=== PATIENT | female | born 1990 | race Caucasian/White ===

== ENCOUNTER → 2018-04-22 13:29 | Outpatient (CLI) | payer OTHER, SELFPAY ==
--- NOTE | 2018-04-22 13:30 | CT_ITS ---
CT abdomen pelvis wo con INDICATION: Abdominal pain. Left flank left lower quadrant and right lower quadrant pain 3 weeks ITS.REASON: Stone Protocol ORDERING PHYSICIAN: Holden Covarrubias MD PATIENT AGE: 28 years COMPARISON: CT abdomen pelvis July 2014 PROCEDURE: Oral Contrast: None IV Contrast: None TECHNIQUE: Axial images are obtained without contrast. Sagittal and coronal reformatted images are reviewed as well. All CT scans at the facility use one or more dose reduction, viz: automated exposure control; ma/kV adjustment per patient size (including targeted exams where dose is matched to indication; i.e. head); or iterative reconstruction technique. FINDINGS: Lung bases clear no acute findings. Small calcified granuloma periphery of theLLL Abdomen/pelvis. Lack of oral and IV contrast decreases sensitivity Liver, spleen, unremarkable. Gallbladder is surgically removed. No biliary ductal dilatation. Pancreas moderate to generous size throughout its unchanged since 2013 with no focal findings on noncontrast study.Adrenals unremarkable. Kidneys. No hydronephrosis. No discrete urinary calculi. Slight hyperdense renal pyramids may reflect tendency to form stones or subtle changes as might be seen with mild medullary sponge kidney type changes. Subtle observation but noted with no definitive renal stone calculi evident.. The ureters are normal in course and caliber bilaterally, with no discrete ureteral calculi evident there are a few small scattered retroperitoneal nodes these are similar to 2014. It do not appear to be a significant no pelvic adenopathy. No significant mesenteric adenopathy GI tract. Large amount stool, increased stool throughout the right colon and cecum. Generous stool the transverse colon. Features may reflect mild constipation right colon. A moderate stool at the left colon. No bowel wall thickening or inflammation. Sigmoid colon with upper normal wall thickness most likely reflect the lack of distention.. Appendix normal. Terminal ileum unremarkable. Small bowel with upper normal fluid at proximal small bowel Prominent food filled moderately distends the stomach. Pelvis. No significant adnexal masses. Anteverted uterus. Bowel loops just above the uterus except for the appearance here. IMPRESSION 1. No discrete acute findings abdomen or pelvis 2. No urinary tract obstruction. No discrete urinary tract calculi. Slightly hyperdense renal pyramids may reflect tendency to form stones, but no discrete renal nor ureteral calculi evident presently. 3. No definitive findings to account for left-sided pain 4. .Prominent stool at the right and transverse colon may reflect mild constipation. .Distended food filled stomach noted on current exam 5. Pelvis. Anteverted and anteflexed uterus No adnexal masses. No free fluid at pelvis
== END ==
PROVIDERS: Family Provider Family Medicine; PCP Family Medicine; Visit Provider Nurse Practitioner Obstetrics & Gynecology
DX: R10.9 Unspecified abdominal pain (principal)
CPT/HCPCS: 74176

== ENCOUNTER → 2018-07-22 11:10 | Outpatient (CLI) | payer OTHER, SELFPAY ==
--- NOTE | 2018-07-22 11:12 | XR_ITS ---
EXAM: XR lumbar spine min 4V HISTORY: ITS.REASON: Severe lower back pain ORDERING PHYSICIAN: Holden Covarrubias MD PATIENT AGE: 28 years COMPARISON: FINDINGS: Normal alignment. No fracture or dislocation. No lytic or blastic change. No significant degenerative change. The disc spaces are preserved. Mild thoracic curvature convex left IMPRESSION: 1. No acute finding of the lumbar spine. 2. Mild thoracolumbar curvature convex left
== END ==
PROVIDERS: PCP Family Medicine; Visit Provider Nurse Practitioner Obstetrics & Gynecology
DX: G89.29 Other chronic pain (principal); M54.16 Radiculopathy, lumbar region
CPT/HCPCS: 72110

== ENCOUNTER → 2018-08-07 12:23 | Outpatient (CLI) | payer OTHER, MEDICAID, SELFPAY ==
--- NOTE | 2018-08-07 12:34 | XR_ITS ---
XR chest employee HISTORY: ITS.REASON: +PPD ORDERING PHYSICIAN: Carmelo Thakkar MD PATIENT AGE: 28 years COMPARISON: None FINDINGS: The cardiomediastinal silhouette and pulmonary vascularity are within normal limits. The lungs are clear without infiltrates, suspicious nodules, or pleural effusions. There is increased density along the left aspect of the heart felt to be related to summation artifact from pericardial fat and breast attenuation and overlying vessels. Not readily apparent on the lateral view.. No acute bony abnormalities. IMPRESSION: No acute finding. No active granulomatous process apparent
[2018-08-07 12:54] VITALS: BMI 20.7
== END ==
PROVIDERS: PCP Internal Medicine Adolescent Medicine; Visit Provider Internal Medicine Adolescent Medicine
DX: R76.11 Nonspecific reaction to tuberculin skin test without active tuberculosis (principal)

== ENCOUNTER 2018-09-17 14:30 | Outpatient (RCR) | payer OTHER, MEDICAID, SELFPAY ==
--- NOTE | 2018-09-08 09:11 | [facility].PTOPEV ---
PT Outpatient Evaluation Rehab PT Outpatient Evaluation Start: 09/08/18 08:36 Freq: Status: Active Protocol: Document 09/08/18 08:37 ANTHONY (Rec: 09/08/18 09:10 [email or web address] [id number]) Electronically Signed By Sharif Cano PT 09/08/18 08:37 Outpatient Therapy Subjective History Subjective History Pt reports to PT w/ c/o LBP R. L s/p fall at home. Pt reports she slipped, fell and landed on tailbone. Pt reports pain started a few days later and has steadily increased. Pt reports standing and lying once relieved pain, now they offer no relief. Pt had Xray, no abnormalities. C/O pain in B paraspinal Mm, w/ some c/o pain into RLE post and ant. Chief Complaint Pain Spasms Stiff Symptom Type Ache Throb Sharp Burning Shooting Symptoms Relieved By Nothing Symptoms Aggravated By Sitting Bending/Stooping Physical Activity Prior Functional Limitations None Current Functional Limitations Desk Work/Reading Driving Sleeping Standing Sitting Recreation Activity Bending/Stooping Symptom Description Constant but Variable Level of pain today (0-10) 3 Pain scale - at its best (0-10) 3 Pain scale - at its worst (0-10) 8 Lumbopelvic Eval Posture Lumbar Spine Posture Standing Position Flattened Assistive device Assistive Devices None / NA Palapation tenderness bilateral thoracic spinal tenderness No lumbar spinal tenderness Yes paraspinal tenderness Yes buttock tenderness No tenderness over symphysis pubis No Lumbar/Sacral Palpation Findings Tenderness Spasm Trigger Point Muscle Guarding Accessory Movement L3 bilateral L4 bilateral L5 bilateral S1 bilateral Range of Motion Lumbar Spine Active Flexion Range of 40 M
== END 2018-09-17 14:35 | disposition home or self-care (01) ==
LOC: PT 14:30
PROVIDERS: Visit Provider Nurse Practitioner
DX: M54.5 Low back pain (principal)
CPT/HCPCS: 97010; 97014; 97033; 97035; 97140; 97163; G0283

== ENCOUNTER → 2018-09-22 09:16 | Outpatient (CLI) | payer OTHER, MEDICAID, SELFPAY ==
--- NOTE | 2018-09-22 09:19 | MR_ITS ---
MR lumbar spine wo con, MR 3-d myelogram/MRCP Ordering Physician: Karolina Garcia Patient Age: 28 years: Female HISTORY: ITS.REASON: LUMBAR BACK PAIN, ACUTE BILATERAL LOW BACK PAIN TECHNIQUE: Sagittal STIR, T1, T2, axial T1 and T2. On 1.5T Siemens wide bore MRI. 3-D MR myelogram image set obtained & performed on MRI workstation. Additional sagittal thin section T2 weighted dataset obtained from this latter acquisition as well (---76 CPT) COMPARISON :Lumbar spine series 5 view from 07/22/2018. FINDINGS The lumbar vertebral bodies are intact. Normal alignment. The disc are well-hydrated well-maintained. No significant disc herniation or protrusion no spinal stenosis. L5/S1. Disc intact. & Unremarkable. Minor facet prominence L4/5. Scant minor disc bulge most evident central. . Does not appear to be of significance only very slightly abuts indents anterior anterior thecal sac at midline. Negligible.. Minor facet prominence. L3/4. Disc intact unremarkable. Neural foramen widely patent graft L2/3 disc intact L1/2 disc intact T12/L1 and T11/12 disc intact.) Appropriately at L1. 3-D MR myelogram image set shows no significant findings. Symmetrical appearance the exiting nerve roots throughout the lumbar region. The images through majority kidneys included, unremarkable. No retroperitoneal adenopathy or aneurysm evident. Uppermost sacrum and SI joints unremarkable IMPRESSION: Basically negative MRI of the lumbar spine -Only note a very minor scant central disc bulge developing at L4/5. Only slightly indents anterior thecal sac at midline.. . No disc herniation. No spinal stenosis. No significant appearing foraminal encroachment.
== END ==
PROVIDERS: PCP Nurse Practitioner; Visit Provider Nurse Practitioner
DX: M54.5 Low back pain (principal)
CPT/HCPCS: 72148; 76376

== ENCOUNTER → 2019-06-01 09:48 | Outpatient (CLI) | payer OTHER, MEDICAID, SELFPAY ==
--- NOTE | 2019-06-01 09:52 | XR_ITS ---
PROCEDURE: XR HAND RT MIN 3V CLINICAL INDICATION: right hand/ 4th digit pain COMPARISON: No exams were available for comparison FINDINGS: No fracture or dislocation. No lytic or blastic change. There is normal mineralization. The joint spaces are well-preserved. No significant degenerative/arthritic changes. No erosive changes evident. Other findings:None. IMPRESSION: No acute findings. Dictated by: Alvaro Santizo MD 06/01/2019 11:04 Signed by: <Electronically signed by Alvaro Santizo MD in [place]> 06/01/2019 11:04
== END ==
PROVIDERS: PCP Family Medicine; Visit Provider Orthopaedic Surgery
DX: M79.641 Pain in right hand (principal)
CPT/HCPCS: 73130

== ENCOUNTER 2019-06-02 15:00 | Inpatient (IN) ==
[2019-06-02 13:17] LABS: Basophils % 0.7 % (0.1-2.0); Eosinophils # 0.3 K/mm3 (0.0-0.4); Eosinophils % 4.3 % (0.1-12.0); Hemoglobin 12.8 g/dL (12.2-16.2); Lymphocytes # 1.6 K/mm3 (0.7-4.5); Lymphocytes % 27.9 % (10-50); Mean Corpuscular HGB Conc 31.9 g/dL (31.8-35.4); Mean Corpuscular Volume 98.4 fl (81-99); Mean Platelet Volume 7.5 fl (7.4-10.4); Monocytes # 0.2 K/mm3 (0.1-1.0); Neutrophils # 3.7 K/mm3 (1.8-7.8); Neutrophils % 63.2 % (37.0-80.0); Platelet Count 296 K/mm3 (142-424); Red Blood Count 4.07 M/mm3 (4.20-5.40); Red Cell Distribution Width 12.7 % (11.5-17.5); White Blood Count 5.8 K/mm3 (4.8-10.8)
[2019-06-02 14:03] LABS: Erythrocyte Sedimentation Rate 73 mm/hr (0-20)
--- NOTE | 2019-06-02 18:27 | Progress Note ---
[facility] Anesthesia Checklist - Patient Identification Patient Identification: Arm Band, Verbal (Name & ) - Structural Data Admitted From: Direct Admit Planned Operative Procedure/s: Right 4th finger I&D Consent for Planned Operative Procedure(s) Verified: Yes Verified Documents: Surgical Consent, History and Physical - NPO Status Verified Time NPO: 09:00 - Chart Verification Results Verified: CBC, BMP, UA - Additional verifications Patient : No Anesthesia Reactions: No Hx Blood Transfusions: No Blood Transfusion Reaction: No - Airway Assessment C-Spine Mobility Assessed: Yes TMJ Mobility Assessed: Yes Dentition: Good Dentition - Neurological Assessment Level of Consciousness: Awake, Alert, Appropriate, Follows Commands Hx Seizures: No Numbness or tingling in extremities: No - Anesthesia Plan Anesthesia Risk discussed: Yes Anesthesia Plan: Verified ASA Class: II Anesthesia Type: General Acuity:: emergent, add on [facility] History I have reviewed the patient's past medical history: Yes Medical History: Reports:: Anxiety, Depression, Migraine Denies:: Cancer, Diabetes Mellitus Type 1, Diabetes Mellitus Type 2, Internal Pacemaker, Lung Disease, MRSA, Seizures *Have you ever received a pneumonia vaccine?: No *Have you received a flu vaccine this season?: Yes Other Medical History: Denies: Blood Transfusion Reaction Comment:: obesity Anesthesia experience/problems:: no complications Other Surgeries: Yes: Cholecystectomy. No: Pacemaker Amputation: No Fractures: No - *Social History Smoking Status: Never smoker Alcohol Intake: never Substance Use Type: denies use *Occupational Status:: employed Housing: house Household Members: other *Travel in the last 8 weeks: None (unknown) - Psychiatric History Pschychiatric History:: Reports:: Anxiety, Depression Family Hx:: Hypertension, Cancer
--- NOTE | 2019-06-02 18:29 | Progress Note ---
[facility] Anesthesia Record Part I Intake, IV Amount: 400 Estimated blood loss (mL): 5 Urine output (mL): 0 (NM) Blood Products used (#): none Blood Pressure: 134/83 SaO2: 96 Pulse Rate: 95 Respiratory Rate: 10 Temperature: 97.3 F Patient is:: Drowsy, Stable Stable to PACU at:: 18:20
--- NOTE | 2019-06-02 18:29 | Progress Note ---
[facility] Anesthesia Record Part II Discharge Time: 18:50 Destination: Medical Surgical Department PACU nurse assessment reviewed?: Yes Patient Condition:: Good Anesthesia Complications:: None Swallowing reflex intact?: Yes Cyanosis?: No
--- NOTE | 2019-06-02 18:54 | Operative Note ---
Date of procedure: 06/02/19 Pre-op Diagnosis:: Tenosynovitis flexor tendon sheath fourth finger, right hand Post-op Diagnosis:: Same Procedure performed:: Incision and drainage flexor tendon sheath fourth finger, right hand Surgeon:: Erasmo Patterson MD Molder Machine(s):: Stephanie Pickett PROFESSOR OF MARKETING:: George Gustafson Anesthesia: GETA Estimated blood loss (mL): 5 Clinical Note:: Patient is a 29-year-old [id number] female with complaints of worsening pain and swelling over the right hand and right fourth finger. There is no his tory of any definitive injury. She says she had developed some discomfort in the left fourth finger after mowing her yard couple of days ago. This is gradually gotten worse with worsening pain, swelling and stiffness in her hand. 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 She is localizing the pain to the volar aspect of the fourth finger mainly over the PIP joint and middle phalanx extending proximally into the hand and distally to the tip of the fourth finger. She reports no pain in other fingers. No history of any fevers, chills or rigors. No history of any previous hand problems or surgery. Clinical examination is highly suggestive of the diagnosis of pyogenic flexor tenosynovitis with positive Kanavel's signs- the fourth finger is in a slightly flexed posture, she is tender over the flexor tendon sheath of the fourth finger, there is marked pain with passive extension of the finger and there is diffuse fusiform swelling of the finger. Sensation is intact to light touch throughout; Capillary refill is brisk. Diagnostic imaging: X-rays of the right hand performed at [facility] yesterday reviewed along with radiologist report. The x-rays are not showing any significant swelling, foreign body or other acute abnormalities. No acute injuries are noted. Following initial consultation in the office yesterda y, I have started her on oral Keflex and clindamycin along with regular NSAIDs. However she returned to the clinic today with worsening pain and swelling. Following discussion regarding management options, a decision was made to admit her to hospital, and she was prepared for surgical incision and drainage. Please refer to my office note for full details. Operative findings:: Infected flexor tendon sheath of the fourth finger with inflamed tendon sheath with exudative fluid. Indurated and erythematous soft tissue at the level of the P2. The flexor tendons are intact and no obvious tendon tears or necrosis noted. No obvious bone or joint involvement was noted. There was cellulitis over the fourth finger extending over the proximal and middle phalanges. A fibr ous/granulomatous nodule noted in the soft tissue volar to the flexor tendon sheath at the level of the P2. This was sent for histopathological examination. Operative note:: Following evaluation in the office, patient was [admitted to hospital and] prepared for surgical incision and drainage. I have discussed the diagnosis, natural history and management options in detail including both nonsurgical and surgical. The procedure of incision and drainage/debridement of pyogenic flexor tenosynovitis was discussed with the patient. The complications discussed including but not limited to- infection, bleeding, injury to nerves, blood vessels, tendons, tendon adhesions, delayed tendon rupture, failure to eradicate the infection, incomplete recovery, persistent pain, stiffness, CRPS, DVT/PE, likely need for further surgery and anesthetic complications including stroke, heart attack and even . Patient wished to proceed with the surgical remediation. All the questions were answered and patient verbalized a good understanding. The limb was appropriately marked. Patient understood the risks, agreed to proceed with surgery, signed the consent form and no guarantees or assurances were given or implied. Patient was brought to the operating room and placed supine on the operating table. The [right] upper extremity was placed over a hand table. All the bony prominences were appropriately padded. A general anesthesia was administered by the assembler tractor. A well-padded tourniquet cuff was placed over the upper arm. The [right] upper extremity was prepped and draped in usual sterile fashion. A preprocedure timeout was performed as per protocol. The limb was elevated but not exsanguinated and tourniquet inflated to 250 mmHg. Please see nursing notes for total tourniquet time. The skin incisions were marked for incision and drainage of the flexor tendon sheath of the [fourth] finger. I first made a an oblique (Ian's) skin incision over the volar aspect of the P2 of the fourth finger. A lot of exudative material was noted but no obvious pus was noted. Culture swabs were obtained for aerobic and anaerobic cultures. After obtaining the samples for microbiology, patient received 1.5 g of IV vancomycin and 2 g of IV Ancef. There was a 3 x 3 mm firm granulomatous nodule in the soft tissue anterior to the flexor tendon sheath. This was removed and sent for histopathological examination. I carried the blunt dissection down to the tendon sheath and noted inflamed tendon sheath filled with exudate. No obvious purulent material or necrotic tissue was noted. The wound was thoroughly irrigated with normal saline mixed with bacitracin. I then made a small slit in the tendon sheath and the exudative fluid drained out. Therefore, I have d ecided to irrigate the tendon sheath. I then made a small transverse incision in the palm distal to the distal flexor crease just proximal to the level of the A1 venice. Then blunt dissection was carried down to the A1 venice. The neurovascular bundles on either side were protected throughout. The flexor tendon sheath of the [fourth] finger was noted to be inflamed and filled with exudative fluid. I incised the sheath proximal to the level of the A1 venice and the fluid was drained. Using an [Angiocath], I irrigated the flexor tendon sheath with copious amounts of normal saline with bacitracin. I continued irrigating the flexor tendon sheath until clear fluid was noted. A total of 500 cc of normal saline with bacitracin was used. The tourniquet was released and hemostasis was obtained with bipolar diathermy. I then placed rubber drains in both the proximal and distal incisions. The skin incisions were then closed with interrupted 4-0 Ethilon sutures. Sterile dressings were applied. Patient was then reversed from the anesthetic and transferred onto the bed. Patient was then safely transported to the postoperative recovery area in stable condition. Patient tolerated the procedure well and there were no immediate complications. The swab, needle and instrument counts were correct at the end of the procedure as per the scrub team. Postoperatively patient will receive IV antibiotics and await culture results for any changes as needed. Patient was advised to keep the limb elevated and mobilize the fingers. Condition: stable Disposition: PACU Specimens:: 1. Aerobic and anaerobic wound swabs for Gram stain and culture and sensitivity 2. Granulomatous tissue from the wound for histopathological examination. Complications:: None
--- NOTE | 2019-06-02 20:00 | Progress Note ---
[facility] Anesthesia Checklist - Patient Identification Patient Identification: Arm Band, Verbal (Name & ) - Structural Data Admitted From: Direct Admit Planned Operative Procedure/s: Right 4th finger I&D Consent for Planned Operative Procedure(s) Verified: Yes Verified Documents: Surgical Consent, History and Physical - NPO Status Verified Time NPO: 09:00 - Chart Verification Results Verified: CBC, BMP, UA - Additional verifications Patient : No Anesthesia Reactions: No Hx Blood Transfusions: No Blood Transfusion Reaction: No - Airway Assessment C-Spine Mobility Assessed: Yes TMJ Mobility Assessed: Yes Dentition: Good Dentition - Neurological Assessment Level of Consciousness: Awake, Alert, Appropriate, Follows Commands Hx Seizures: No Numbness or tingling in extremities: No - Anesthesia Plan Anesthesia Risk discussed: Yes Anesthesia Plan: Verified ASA Class: II Anesthesia Type: General Acuity:: emergent, add on [facility] History I have reviewed the patient's past medical history: Yes Medical History: Reports:: Anxiety, Depression, Migraine Denies:: Cancer, Diabetes Mellitus Type 1, Diabetes Mellitus Type 2, Internal Pacemaker, Lung Disease, MRSA, Seizures *Have you ever received a pneumonia vaccine?: No *Have you received a flu vaccine this season?: Yes Other Medical History: Denies: Blood Transfusion Reaction Comment:: obesity Anesthesia experience/problems:: no complications Other Surgeries: Yes: Cholecystectomy. No: Pacemaker Amputation: No Fractures: No - *Social History Smoking Status: Never smoker Alcohol Intake: never Substance Use Type: denies use *Occupational Status:: employed Housing: house Household Members: other *Travel in the last 8 weeks: None (unknown) - Psychiatric History Pschychiatric History:: Reports:: Anxiety, Depression Family Hx:: Hypertension, Cancer
--- NOTE | 2019-06-02 20:00 | Progress Note ---
[facility] Anesthesia Record Part I Intake, IV Amount: 400 Estimated blood loss (mL): 5 Urine output (mL): 0 (NM) Blood Products used (#): none Blood Pressure: 134/83 SaO2: 96 Pulse Rate: 95 Respiratory Rate: 10 Temperature: 97.3 F Patient is:: Drowsy, Stable Stable to PACU at:: 18:20
--- NOTE | 2019-06-02 20:00 | Progress Note ---
[facility] Anesthesia Record Part II Discharge Time: 18:50 Destination: Medical Surgical Department PACU nurse assessment reviewed?: Yes Patient Condition:: Good Anesthesia Complications:: None Swallowing reflex intact?: Yes Cyanosis?: No
--- NOTE | 2019-06-03 07:34 | Pharmacy Consult Notes ---
[facility] Pharmacy VTE Monitoring - Patient Demographics Admission date: 06/02/19 Report Date: 06/03/19 Time: 07:34 Allergies/Adverse Reactions: Patient Allergies Sulfa (Sulfonamide Antibiotics) Allergy (Mild, Verified 06/02/19 15:15) Nausea Height: 1.57 m Weight: 77.196 kg - VTE Risk Labs: VTE Related Lab Results Hgb 12.8 g/dL (12.2-16.2) 06/02/19 13:01 Hct 40.0 % (37.0-47.0) 06/02/19 13:01 Plt Count 296 K/mm3 (142-424) 06/02/19 13:01 VTE Score: 2 - Prophylaxis VTE Prophylaxis Ordered?: Yes Types of VTE Prophylaxis: IPCS Thigh High Location of Applied Device: Bilateral Lower Extremeties - VTE Diagnosis Confirmed Treatment or plan recommended: Continue Current Treatment
[2019-06-03 08:11] LABS: Anion Gap 12.1 mEq/L (5-15); Basophils % 0.1 % (0.1-2.0); Calcium 8.7 mg/dL (8.5-10.1); Eosinophils % 0.2 % (0.1-12.0); Hematocrit 37.6 % (37.0-47.0); Lymphocytes # 1.2 K/mm3 (0.7-4.5); Lymphocytes % 9.3 % (10-50); Mean Corpuscular HGB Conc 31.9 g/dL (31.8-35.4); Mean Corpuscular Volume 99.1 fl (81-99); Monocytes # 0.4 K/mm3 (0.1-1.0); Monocytes % 3.5 % (1.7-9.3); Neutrophils # 10.9 K/mm3 (1.8-7.8); Platelet Count 293 K/mm3 (142-424); Red Cell Distribution Width 12.5 % (11.5-17.5); White Blood Count 12.5 K/mm3 (4.8-10.8)
[2019-06-03 08:46] LABS: Lymphocytes % 9 % (10-50); Monocytes % 3 % (2-9); Neutrophils % 84 % (42-76); Total Cells Counted 100
--- NOTE | 2019-06-03 10:12 | Pharmacy Consult Notes ---
- Pharmacy Consult Date: 06/03/19 Time: 10:11 Referring provider: DR. COLON Reason for Consult:: VANCOMYCIN DOSING Allergies and ADEs:: Allergies Allergy/AdvReac Type Severity Reaction Status Date / Time Sulfa (Sulfonamide Allergy Mild Nausea Verified 06/02/19 15:15 Antibiotics) Home Medications:: Home Medications Medication Instructions Recorded Confirmed Type sumatriptan 50 mg tablet 50 mg PO ONCE PRN #12 tab 07/31/18 06/02/19 Rx diazepam 5 mg tablet 5 mg PO QHS PRN 03/22/19 06/02/19 History fluoxetine 40 mg capsule 40 mg PO DAILY 03/22/19 06/02/19 History Naproxen 500 mg PO BID 04/16/19 06/02/19 History phentermine 37.5 mg tablet 37.5 mg PO DAILY #30 tab 05/20/19 06/02/19 Rx Clindamycin HCl [Clindamycin HCl 300 mg PO QID 06/02/19 06/02/19 History 300mg Cap] cephALEXin [Keflex 500mg Cap] 500 mg PO QID 06/02/19 06/02/19 History Height: 1.57 m Weight: 77.196 kg Laboratory Results:: Laboratory Results - last 24 hr 06/02/19 13:01: WBC 5.8, RBC 4.07 L, Hgb 12.8, Hct 40.0, MCV 98.4, MCH 31.4 H, MCHC 31.9, RDW 12.7, Plt Count 296, MPV 7.5, Neut % (Auto) 63.2, Lymph % (Auto) 27.9, Bullock % (Auto) 4.0, Eos % (Auto) 4.3, Baso % (Auto) 0.7, Neut # (Auto) 3.7, Lymph # (Auto) 1.6, Bullock # (Auto) 0.2, Eos # (Auto) 0.3, Baso # (Auto) 0.0, ESR 73 H 06/02/19 13:01: C-Reactive Protein 0.6 06/02/19 13:05: Serum HCG, Qual Negative 06/03/19 07:50: WBC 12.5 H D, RBC 3.80 L, Hgb 12.0 L, Hct 37.6, MCV 99.1 H, MCH 31.6 H, MCHC 31.9, RDW 12.5, Plt Count 293, MPV 7.0 L, Neut % (Auto) 87.0 H, Lymph % (Auto) 9.3 L, Bullock % (Auto) 3.5, Eos % (Auto) 0.2, Baso % (Auto) 0.1, Neut # (Auto) 10.9 H, Lymph # (Auto) 1.2, Bullock # (Auto) 0.4, Eos # (Auto) 0.0, Baso # (Auto) 0.0, Total Counted 100, Neutrophils % (Manual) 84 H, Band Neutrophils % 4.0, Lymphocytes % (Manual) 9 L, Monocytes % (Manual) 3, Platelet Estimate Normal 06/03/19 07:50: Sodium 141, Potassium 4.1, Chloride 107, Carbon Dioxide 26, Anion Gap 12.1, BUN 11, Creatinine 0.81, Estimated Creat Clear 127, Estimated GFR 85, Est GFR ( Amer) 103, Glucose 121 H, Calcium 8.7 Medical History: Reports:: Anxiety, Depression, Gall Bladder Disease, Migraine Denies:: Cancer, Diabetes Mellitus Type 1, Diabetes Mellitus Type 2, Internal Pacemaker, Lung Disease, MRSA, Seizures Assessment and Plan - Assessment and plan all Dx Assessment and Plan for all problems:: PATIENT RECEIVED VANCOMYCIN 1500 MG IN SURGERY AFTER CULTURES WERE OBTAINED. RECOMMEND CONTINUING WITH VANCOMYCIN 1500 MG Q12H AT THIS TIME. PHARMACY WILL FOLLOW DAILY AND ADJUST APPROPRIATE.
--- NOTE | 2019-06-03 13:32 | Progress Note ---
Subjective Date: 06/03/19 Time: 13:15 Interval history: Patient is status post incision and drainage pyogenic tenosynovitis right fourth finger, post op day # 1. Patient says she is doing well and reports no problems. She reports mild to moderate pain and says it's well-controlled with medicati on. No history of any fevers, chills or rigors. No history of any cough, chest pain, shortness of breath or palpitations. Patient says she is eating and drinking well. No history of any distal tingling or numbness. PN: Obj Ex Vital signs: Temp Pulse Resp BP Pulse Ox 97.7 F 74 16 113/71 100 06/03/19 09:33 06/03/19 09:33 06/03/19 09:33 06/03/19 09:33 06/03/19 09:33 Narrative: Laboratory Results - last 24 hr 06/02/19 13:01: ESR 73 H 06/02/19 13:05: Serum HCG, Qual Negative 06/03/19 07:50: WBC 12.5 H D, RBC 3.80 L, Hgb 12.0 L, Hct 37.6, MCV 99.1 H, MCH 31.6 H, MCHC 31.9, RDW 12.5, Plt Count 293, MPV 7.0 L, Neut % (Auto) 87.0 H, Lymph % (Auto) 9.3 L, S[place] % (Auto) 3.5, Eos % (Auto) 0.2, Baso % (Auto) 0.1, Neut # (Auto) 10.9 H, Lymph # (Auto) 1.2, [place] # (Auto) 0.4, Eos # (Auto) 0.0, Baso # (Auto) 0.0, Total Counted 100, Neutrophils % (Manual) 84 H, Band Neutrophils % 4.0, Lymphocytes % (Manual) 9 L, Monocytes % (Manual) 3, Platelet Estimate Normal 06/03/19 07:50: Sodium 141, Potassium 4.1, Chloride 107, Carbon Dioxide 26, Anion Gap 12.1, BUN 11, Creatinine 0.81, Estimated Creat Clear 127, Estimated GFR 85, Est GFR ( Amer) 103, Glucose 121 H, Calcium 8.7 Exam General appearance: alert, active, awake, no acute distress Cardiovascular: regular rate & rhythm, normal peripheral pulses Respiratory: No respiratory distress noted, speaks in full sentences ABD: soft and non tender Neuro: alert, awake, oriented x 3 Psych: normal mood and affect On examination of the right hand, the dressings are clean, dry and intact. There is no soakage of the dressings noted. No evidence of any complications noted. Distal capillary refill is brisk. Distal sensation is intact to light touch throughout. She is able to actively move the fingers. Progress Note: A&P (1) Flexor tenosynovitis of finger Status: Acute Current Visit: Yes Assessment and Plan for All Diagnoses:: I have reviewed the clinical and operative findings and procedure performed with the patient. Patient is doing well and reports no problems. The microbiology r esults are awaited-Gram stain was negative and culture results are not available yet. Advised patient to continue elevation, ice, mobilization of the fingers as comfortable. Continue IV antibiotics and any changes to be made in accordance with the culture report and clinical response.
--- NOTE | 2019-06-04 09:58 | Pharmacy Consult Notes ---
- Pharmacy Consult Date: 06/04/19 Time: 09:56 Referring provider: DR. COLON Reason for Consult:: VANCOMYCIN LEVEL Allergies and ADEs:: Allergies Allergy/AdvReac Type Severity Reaction Status Date / Time Sulfa (Sulfonamide Allergy Mild Nausea Verified 06/02/19 15:15 Antibiotics) Home Medications:: Home Medications Medication Instructions Recorded Confirmed Type sumatriptan 50 mg tablet 50 mg PO ONCE PRN #12 tab 07/31/18 06/02/19 Rx diazepam 5 mg tablet 5 mg PO BIDP PRN 03/22/19 06/03/19 History fluoxetine 40 mg capsule 40 mg PO DAILY 03/22/19 06/02/19 History Naproxen 500 mg PO BID 04/16/19 06/02/19 History phentermine 37.5 mg tablet 37.5 mg PO DAILY #30 tab 05/20/19 06/02/19 Rx Clindamycin HCl [Clindamycin HCl 300 mg PO QID 06/02/19 06/02/19 History 300mg Cap] cephALEXin [Keflex 500mg Cap] 500 mg PO QID 06/02/19 06/02/19 History Height: 1.57 m Weight: 77.139 kg Laboratory Results:: Laboratory Results - last 24 hr 06/04/19 07:56: Vancomycin Trough 10.1 Medical History: Reports:: Anxiety, Depression, Gall Bladder Disease, Migraine Denies:: Cancer, Diabetes Mellitus Type 1, Diabetes Mellitus Type 2, Internal Pacemaker, Lung Disease, MRSA, Seizures Assessment and Plan (1) Flexor tenosynovitis of finger Current visit: Yes Status: Acute Category: Medical Code(s): M65.9 - Synovitis and tenosynovitis, unspecified - Assessment and plan all Dx Assessment and Plan for all problems:: PATIENT'S VANCOMYCIN TROUGH LEVEL WAS 10.1 MCG/ML THIS AM PRIOR TO THE 4TH DOSE. RECOMMEND PATIENT CONTINUE WITH VANCOMYCIN 1500 MG Q12H AT THIS TIME. PHARMACY WILL FOLLOW DAILY AND ADJUST APPROPRIATE.
[2019-06-04 10:37] LABS: Basophils # 0.1 K/mm3 (0-0.2); Eosinophils # 0.2 K/mm3 (0.0-0.4); Hemoglobin 11.8 g/dL (12.2-16.2); Lymphocytes # 3.1 K/mm3 (0.7-4.5); Lymphocytes % 43.7 % (10-50); Mean Corpuscular HGB Conc 31.9 g/dL (31.8-35.4); Mean Corpuscular Volume 99.3 fl (81-99); Mean Platelet Volume 9.4 fl (7.4-10.4); Monocytes # 0.2 K/mm3 (0.1-1.0); Neutrophils # 3.5 K/mm3 (1.8-7.8); Neutrophils % 49.3 % (37.0-80.0); Platelet Count 243 K/mm3 (142-424); Red Blood Count 3.73 M/mm3 (4.20-5.40); Red Cell Distribution Width 12.5 % (11.5-17.5)
--- NOTE | 2019-06-04 14:37 | Discharge Summary ---
General - General Admission date:: 06/02/19 Discharge date: 06/04/19 HPI HPI: This 29 year old right hand dominant female presents to us today for follow-up orthopaedic evaluation on her right fourth digit. She called our office complaining of increased pain, swelling and loss of mobility of the fourth finger compared to yesterday. She says she is not able to flex or extend the finger and the pain radiating all the way up to the elbow. She was started oral antibiotics yesterday and is reporting some nausea from them. She is also taking regular NSAIDs. No history of any fevers, chills or rigors. She states any attempted movement of the finger aggravates her pain. She also reports constant background throbbing sensation in the finger. She rates her pain a 8 out of 10 on the pain scale. No history of any distal tingling or numbness. 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 Hospital Course Hospital Course: Following evaluation in the office patient was prepared for the OR. She was taken to surgery the same day and underwent an incision and drainage of the infected flexor tendon sheath of right fourth finger. After surgery she was started on IV vancomycin and Rocephin. Postoperatively she made rapid progress and has been apyrexial. Surgical dressings were changed on the second postoperative day. The pain, swelling and mobility of the finger improved significantly. Intraoperative cultures have been negative so far with no growth. At the time of discharge patient is hemodynamically stable. The surgical dressings were changed on the day of discharge and the rubber drains were removed. Patient is being discharged on empirical oral antibiotics. Objective Vital signs: Temp Pulse Resp BP Pulse Ox 98.4 F 91 H 16 150/79 H 100 06/04/19 11:18 06/04/19 11:18 06/04/19 11:18 06/04/19 11:18 06/04/19 11:18 no acute distress, obese, cooperative - *Routine HEENT Exam Head: Present: normocephalic, atraumatic Eye: Present: EOMI ENT: Present: mucous membranes moist - *Routine Neck Exam Present: supple, full ROM, trachea midline - *Routine Respiratory Exam Present: CTA bilaterally - *Routine Cardiovascular Exam Present: RRR, Normal S1, Normal S2 - *Routine Abdominal Exam Present: soft, normoactive bowel sounds - *Routine Extremities Exam Comments: On examination of the right hand, the dressings are clean, dry and intact. There is no soakage of the dressings. The dressings were changed today and both the incisions are clean, dry and healthy. The rubber drains have been removed. No evidence of any complications noted. Distal capillary refill is brisk. Distal sensation is intact to light touch throughout. She is able to actively move the fingers. - *Routine Skin Exam Present: intact, warm, normal turgor - *Routine Neurological Exam Present: alert, oriented X3, normal tone. Absent: sensory deficit, motor deficit - Routine Psychiatric Exam Present: normal affect, cooperative Results Labs on day of discharge: Labs from last 24 hours 06/04/19 06/04/19 06/04/19 07:56 07:56 07:56 WBC 7.0 D RBC 3.73 L Hgb 11.8 L Hct 37.0 MCV 99.3 H MCH 31.7 H MCHC 31.9 RDW 12.5 Plt Count 243 MPV 9.4 Neut % (Auto) 49.3 Lymph % (Auto) 43.7 [place] % (Auto) 3.0 Eos % (Auto) 3.0 Baso % (Auto) 1.0 Neut # (Auto) 3.5 Lymph # (Auto) 3.1 Gove # (Auto) 0.2 Eos # (Auto) 0.2 Baso # (Auto) 0.1 ESR 17 C-Reactive Protein < 0.2 D Vancomycin Trough 06/04/19 07:56 WBC RBC Hgb Hct MCV MCH MCHC RDW Plt Count MPV Neut % (Auto) Lymph % (Auto) Gove % (Auto) Eos % (Auto) Baso % (Auto) Neut # (Auto) Lymph # (Auto) Gove # (Auto) Eos # (Auto) Baso # (Auto) ESR C-Reactive Protein Vancomycin Trough 10.1 Preliminary micro results at discharge 06/02/19 16:50 Wound Culture - Preliminary Finger,Right Ring - Right Ring NO GROWTH AFTER 24 HOURS DS: Diagnosis - Discharge Diagnosis (1) Flexor tenosynovitis of finger Status: Acute Discharge Plan - Patient Discharge Instructions ACTIVITY: Continue current activity, Ambulate as tolerated Patient Instructions: DI for Surgical Site Infection, Surgical Site Infection - Follow up Plan Follow up with: Earsmo Patterson MD [Staff Physician] - 06/09/19 3:15 pm Disposition: Home, Self-Retirement Medications: Home Medications Medication Instructions Recorded Confirmed Type sumatriptan 50 mg tablet 50 mg PO ONCE PRN #12 tab 07/31/18 06/02/19 Rx diazepam 5 mg tablet 5 mg PO BIDP PRN 03/22/19 06/03/19 History fluoxetine 40 mg capsule 40 mg PO DAILY 03/22/19 06/02/19 History Naproxen 500 mg PO BID 04/16/19 06/02/19 History phentermine 37.5 mg tablet 37.5 mg PO DAILY #30 tab 05/20/19 06/02/19 Rx Clindamycin HCl [Clindamycin HCl 300 mg PO QID 06/02/19 06/02/19 History 300mg Cap] cephALEXin [Keflex 500mg Cap] 500 mg PO QID 06/02/19 06/02/19 History Hydrocod/Acet 5/325 mg [[place] 1 - 2 tab PO Q6HP PRN #20 tab 06/04/19 Rx 5/325mg tablet] Ondansetron HCl [Zofran 4mg Tab] 4 mg PO Q8HP PRN #20 tab 06/04/19 Rx Prescriptions/Medication Reconciliation: New Hydrocod/Acet 5/325 mg [[place] 5/325mg tablet] 1 - 2 tab PO Q6HP PRN #20 tab PRN Reason: Moderate To Severe Pain Ondansetron HCl [Zofran 4mg Tab] 4 mg PO Q8HP PRN #20 tab PRN Reason: Nausea And Vomiting Continued sumatriptan 50 mg tablet 50 mg PO ONCE PRN #12 tab PRN Reason: Migraine Headache fluoxetine 40 mg capsule 40 mg PO DAILY diazepam 5 mg tablet 5 mg PO BIDP PRN PRN Reason: Anxiety phentermine 37.5 mg tablet 37.5 mg PO DAILY #30 tab Naproxen 500 mg PO BID cephALEXin [Keflex 500mg Cap] 500 mg PO QID Clindamycin HCl [Clindamycin HCl 300mg Cap] 300 mg PO QID - Problem Reconciliation Problems Reviewed?: Yes - Additional Information Additional Information: Our recommendations on discharge include elevation, icing, active finger movements as comfortable, as needed pain medication and regular antibiotics as prescribed. I have recommended oral Keflex 500 mg 6 hourly and oral clindamycin 300 mg 6 hourly. Any alterations to the antibiotic regimen will be depending on clinical progress and culture results. Patient will follow up with me in the office in 3 to 4 days time for wound check and change of dressings. Please feel free to call our office at [phone] or via the hospital ctc operator [phone] for any orthopaedic questions or concerns.
== END 2019-06-04 16:00 | disposition home or self-care (01) | DRG 558 ==
LOC: OBSVTOIN 19:00 → 2ND 19:01
PROVIDERS: ADMIT Orthopaedic Surgery; ATTEND Orthopaedic Surgery
CPT/HCPCS: 36415; 80048; 80202; 84703; 85007; 85025; 85651; 86140; 87070; 87075; 87205; 96374; J0131; J2405; J3370

== ENCOUNTER → 2019-07-05 09:48 | Outpatient (POV) | payer OTHER, MEDICAID, SELFPAY ==
[2019-07-05 09:52] VITALS: BP 125/85; PULSE 75; RESP 18; O2SAT 98; BMI 28.8
--- NOTE | 2019-07-05 12:50 | HMH.PMCON ---
Assessment and Plan (1) CRPS (complex regional pain syndrome type I) Current visit: Yes Status: Chronic Qualifiers: Complex regional pain syndrome affected site: upper extremity Laterality: right Qualified Code(s): G90.511 - Complex regional pain syndrome I of right upper limb Category: Medical Code(s): G90.50 - Complex regional pain syndrome I, unspecified - Assessment and plan all Dx Assessment and Plan for all problems:: Plan to increase her Lyrica 75 mg to 3 times a day. We will also plan on a sympathetic nerve block at the C5-C6 level. I will follow-up with the patient after this injection reassess her symptoms at that time she is not on any anticoagulation therapy. Dr. Johnston has reviewed this note and agrees with this plan of care. This note was dictated using voice recognition software and may contain errors or omissions HPI - Data of Consult Consult date: 07/05/19 Requesting Physician: Greer Osorio APRN Primary Care Provider: Karolina Garcia - Consult Narrative Reason for consult: Right arm pain History of present illness: Ms. Camacho is a 29 year old female who presents today for consultation in regards to her right arm and hand pain. Patient had surgical procedure on the inside of her right palm about a month ago. Since then she has had color changes, temperature changes, extreme pain including burning. Patient's right arm is painful from the shoulder down worse at the hand. Patient has significant swelling in that area along with a purpleish color affecting the hand area. She rates her pain a 6 out of 10. She is been started on Lyrica 75 mg 1 p.o. twice daily this is beneficial. She denies side effects to the medication. CC: Greer Osorio APRN [facility] History I have reviewed the patient's past medical history: Yes Medical History: Reports:: Anxiety, Depression, Gall Bladder Disease, Migraine Denies:: Cancer, Diabetes Mellitus Type 1, Diabetes Mellitus Type 2, Internal Pacemaker, Lung Disease, MRSA, Seizures *Have you ever received a pneumonia vaccine?: No *Have you received a flu vaccine this season?: Yes Other Medical History: Denies: Blood Transfusion Reaction Other Surgeries: Yes: No Previous Surgery, Cholecystectomy. No: Pacemaker Amputation: No Fractures: No - *Social History Smoking Status: Never smoker Alcohol Intake: current Alcohol Intake Frequency:: holidays/special occasions only Substance Use Type: denies use *Occupational Status:: other Housing: house Household Members: other *Travel in the last 8 weeks: None - Psychiatric History Pschychiatric History:: Reports:: Anxiety, Depression Family Hx:: Hypertension, Cancer Review of Systems - Review of Systems ROS General: no recent weight change, no fever, no sleep disturbances Respiratory: no cough, no shortness of air, no recurring pulmonary infections Cardiovascular/Peripheral Vascular: No chest pain, No palpitations, no edema, no shortness of breath. Gastrointestinal: no incontinence, normal bowel movements reported Genitourinary: no incontinence Musculoskeletal: Right arm pain Psychiatric: normal mood/ affect Neurological: [denies weakness in extremities], [denies balance issues] Meds Home Medications Medication Instructions Recorded Confirmed Type sumatriptan 50 mg tablet 50 mg PO ONCE PRN #12 tab 07/31/18 06/22/19 Rx diazepam 5 mg tablet 5 mg PO BIDP PRN 03/22/19 06/22/19 History fluoxetine 40 mg capsule 40 mg PO DAILY 03/22/19 06/22/19 History Naproxen 500 mg PO BID 04/16/19 06/22/19 History phentermine 37.5 mg tablet 37.5 mg PO DAILY #30 tab 05/20/19 06/22/19 Rx Clindamycin HCl [Clindamycin HCl 300 mg PO QID 06/02/19 06/22/19 History 300mg Cap] cephALEXin [Keflex 500mg Cap] 500 mg PO QID 06/02/19 06/22/19 History Hydrocod/Acet 5/325 mg [[place] 1 - 2 tab PO Q6HP PRN #20 tab 06/04/19 06/22/19 Rx 5/325mg tablet] Ondansetron HCl [Zofran 4mg Tab] 4 mg PO Q8HP PRN #
--- NOTE | 2019-07-05 12:53 | P.CONS_ITS ---
Assessment and Plan (1) CRPS (complex regional pain syndrome type I) Current visit: Yes Status: Chronic Qualifiers: Complex regional pain syndrome affected site: upper extremity Laterality: right Qualified Code(s): G90.511 - Complex regional pain syndrome I of right upper limb Category: Medical Code(s): G90.50 - Complex regional pain syndrome I, unspecified - Assessment and plan all Dx Assessment and Plan for all problems:: Plan to increase her Lyrica 75 mg to 3 times a day. We will also plan on a sympathetic nerve block at the C5-C6 level. I will follow-up with the patient after this injection reassess her symptoms at that time she is not on any anticoagulation therapy. Dr. Johnston has reviewed this note and agrees with this plan of care. This note was dictated using voice recognition software and may contain errors or omissions HPI - Data of Consult Consult date: 07/05/19 Requesting Physician: Greer Osorio APRN Primary Care Provider: Karolina Garcia - Consult Narrative Reason for consult: Right arm pain History of present illness: Ms. Camacho is a 29 year old female who presents today for consultation in regards to her right arm and hand pain. Patient had surgical procedure on the inside of her right palm about a month ago. Since then she has had color changes, temperature changes, extreme pain including burning. Patient's right arm is painful from the shoulder down worse at the hand. Patient has significant swelling in that area along with a purpleish color affecting the hand area. She rates her pain a 6 out of 10. She is been started on Lyrica 75 mg 1 p.o. twice daily this is beneficial. She denies side effects to the medication. CC: Greer Osorio APRN [facility] History I have reviewed the patient's past medical history: Yes Medical History: Reports:: Anxiety, Depression, Gall Bladder Disease, Migraine Denies:: Cancer, Diabetes Mellitus Type 1, Diabetes Mellitus Type 2, Internal Pacemaker, Lung Disease, MRSA, Seizures *Have you ever received a pneumonia vaccine?: No *Have you received a flu vaccine this season?: Yes Other Medical History: Denies: Blood Transfusion Reaction Other Surgeries: Yes: No Previous Surgery, Cholecystectomy. No: Pacemaker Amputation: No Fractures: No - *Social History Smoking Status: Never smoker Alcohol Intake: current Alcohol Intake Frequency:: holidays/special occasions only Substance Use Type: denies use *Occupational Status:: other Housing: house Household Members: other *Travel in the last 8 weeks: None - Psychiatric History Pschychiatric History:: Reports:: Anxiety, Depression Family Hx:: Hypertension, Cancer Review of Systems - Review of Systems ROS General: no recent weight change, no fever, no sleep disturbances Respiratory: no cough, no shortness of air, no recurring pulmonary infections Cardiovascular/Peripheral Vascular: No chest pain, No palpitations, no edema, no shortness of breath. Gastrointestinal: no incontinence, normal bowel movements reported Genitourinary: no incontinence Musculoskeletal: Right arm pain Psychiatric: normal mood/ affect Neurological: [denies weakness in extremities], [denies balance issues] Meds Home Medications Medication Instructions Recorded Confirmed Type sumatriptan 50 mg tablet 50 mg PO ONCE PRN #12 tab 07/31/18 06/22/19 Rx diazepam 5 mg tablet 5 mg PO BIDP PRN 03/22/19 06/22/19 History fluoxetine 40 mg capsule 40 mg PO DAILY 03/06
== END ==
PROVIDERS: PCP Nurse Practitioner; Visit Provider Clinical Nurse Specialist Family Health
DX: G90.511 Complex regional pain syndrome I of right upper limb (principal)
CPT/HCPCS: 99212

== ENCOUNTER → 2019-07-05 14:51 | Outpatient (POV) | payer OTHER, MEDICAID, SELFPAY | PROVIDERS: Visit Provider Specialist | DX: M79.601 Pain in right arm (principal); R20.2 Paresthesia of skin; G56.21 Lesion of ulnar nerve, right upper limb | CPT/HCPCS: 95886; 95908 ==

== ENCOUNTER 2019-07-09 09:30 | Outpatient (RCR) | payer OTHER, MEDICAID, SELFPAY | END 2019-07-09 09:45 | disposition home or self-care (01) | LOC: OT 09:30 | PROVIDERS: Visit Provider Orthopaedic Surgery | DX: G56.01 Carpal tunnel syndrome, right upper limb (principal) | CPT/HCPCS: 97763 ==

== ENCOUNTER → 2019-09-07 12:59 | Outpatient (POV) | payer OTHER, MEDICAID, SELFPAY | PROVIDERS: Visit Provider Dermatology | DX: Z00.00 Encounter for general adult medical examination without abnormal findings (principal) ==

== ENCOUNTER 2019-09-15 15:49 | Outpatient (RCR) | payer OTHER, MEDICAID, SELFPAY | END 2019-09-15 15:50 | disposition home or self-care (01) | LOC: OT 15:49 | PROVIDERS: Visit Provider Orthopaedic Surgery | DX: G56.21 Lesion of ulnar nerve, right upper limb (principal); M65.9 Synovitis and tenosynovitis, unspecified | CPT/HCPCS: 97760 ==

== ENCOUNTER 2019-10-15 10:00 | Outpatient (RCR) | payer OTHER, MEDICAID, SELFPAY ==
--- NOTE | 2019-06-15 10:18 | HMH.OTOPEV ---
OT Inpatient Evaluation Rehab OT Outpatient Eval Start: 06/15/19 10:00 Freq: Status: Active Protocol: [facility]15/19 10[facility]00 [facility] (Rec: 06/15/19 10:18 [facility] [id number]) Electronically Signed By Petty Doll OT 06/15/19 10:00 Outpatient Therapy Subjective History Subjective History Pt is a 29 year old female who reports to therapy for inital evaluation to right ring finger. Pt began having pain in the middle phalanx of the right ring finger on 05/31/19. Pt's finger came more tender, red, and swollen. Pt started on antibiotics per ortho physician. However, pt continued to have increased pain and redness/swelling spread down into the palm of the hand. Pt had an I & D on 06/02/19. Pt has a 1 and 1/2 cm incision on middle phalanx and a 1 1/2 cm incision on the top of the palm. Pt does demonstrate with decreased AROM and strength at right ring finger. Pt is right hand dominant. Pt will continue to be seen in order to address all deficits and increase function of right hand. Chief Complaint Pain,Stiff,Weakness Symptom Type Ache,Throb,Sharp,Stabbing, Shooting Symptoms Relieved By Rest/Positioning Symptoms Aggravated By Physical Activity,Twisting, Lifting Prior Functional Limitations None Current Functional Limitations Reaching,Lifting,Housework, Recreation Activity Symptom Description Intermittent,Activity Dependent Level of pain today (0-10) 1 Pain scale - at its best (0-10) 0 Pain scale - at its worst (0-10) 3 Wrist/Hand Eval Finger Range of Motion Right Ring Finger Finger ROM Limitations Pain Finger Metacarpophalangeal Flexion 30 degrees Active Range of Motion (degrees) Finger Metacarpophalangeal Extension 0 degrees Active Range of Motion (degrees) Finger Proximal Interphalangeal Flexion 70 degrees Active Range (degrees) Finger Proximal Interphalangeal 0 degrees Extension Active Range (degrees) Finger Distal Interphalangeal Flexion 30 degrees Active Range o
--- NOTE | 2019-08-09 15:15 | HMH.RHREAS ---
Rehab Reassessment Rehab OP Re-assessment Start: 08/09/19 14:45 Freq: Status: Active Protocol: Document 08/09/19 14:45 CODI (Rec: 08/09/19 15:14 RMARSHALL [id number]) Electronically Signed By Petty Doll OT 08/09/19 14:45 Rehab Re-assessment Subjective Subjective It has come a long way. Objective Objective Notes Pt continues to be seen twice a week in order to receive scar massage to right ring finger and right palm. Pt is also passively ranged at right ring finger and right wrist. Pt does receive modalities in order to decrease pain/ inflammation. Assessment Progress Assessment Progressing as Expected Assessment Notes Pt's AROM has improved since initial evaluation; however strength continues to remain a clinical goal. 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 Right Ring finger MP Flex: 90 degrees PIP Flex: 100 degrees DIP Flex: 70 degrees Right Hand paid search marketing analyst strength goal 25 lbs Plan Plan Continue with OT plan of care Frequency of Therapy 2x's a week Duration of therapy 4 more weeks Time and Billing Re-Eval Time 15 Re-Eval Billing Units 1 PHYSICIAN CERTIFICATION: I certify the specified therapy services for Shania Camacho are required, authorized, and reviewed every 30 days.
--- NOTE | 2019-09-07 09:07 | HMH.RHREAS ---
Rehab Reassessment Rehab OP Re-assessment Start: 08/09/19 14:45 Freq: Status: Active Protocol: Document 09/07/19 08:49 CODI (Rec: 09/07/19 09:07 [email or web address] [id number]) Electronically Signed By Petty Doll OT 09/07/19 08:49 Rehab Re-assessment Subjective Subjective I see some improvements. Objective Objective Notes Pt continues to be seen twice a week in order to receive scar massage to right ring finger and right palm. Pt is also passively ranged at right ring finger and right wrist. Pt is engaging in right hand and wrist strengthening exercises. Pt does receive modalities in order to decrease pain/inflammation. Assessment Progress Assessment Progressing as Expected Assessment Notes Pt's AROM has improved since initial evaluation; however strength continues to remain a clinical goal. Current AROM at right Ring finger MP Flex: 90 degrees MP Ext: 0 degrees PIP Flex: 90 degrees PIP Ext: 0 degrees DIP Flex: 65 degrees DIP Ext: 0 degrees Current Wage Conciliator strength Right hand: 8 lbs (dominant hand) Left: 20 lbs Patient goals met Short term goals have been met Goals Not Met lobsterman goals Revised Goals Continue progressing toward oil heaterman goals written on initial evaluation. Right Ring finger MP Flex: 90 degrees PIP Flex: 100 degrees DIP Flex: 70 degrees Right Hand roastmaster strength goal 25 lbs Plan Plan Continue with OT plan of care Frequency of Therapy 2x's a week Duration of therapy 4 more weeks Time and Billing Re-Eval Time 15 Re-Eval Billing Units 1 PHYSICIAN CERTIFICATION: I certify the specified therapy services for Shania Camacho are required, authorized, and reviewed every 30 days.
--- NOTE | 2019-10-15 10:50 | HMH.RHREAS ---
Rehab Reassessment Rehab OP Re-assessment Start: 08/09/19 14:45 Freq: Status: Active Protocol: Document 10/15/19 10:40 RMARSHALL (Rec: 10/15/19 10:49 RMARSHALL [id number]) Electronically Signed By Petty Doll OT 10/15/19 10:40 Rehab Re-assessment Subjective Subjective I'm hoping this works good. Objective Objective Notes Pt has been inconsistent about attending therapy sessions. Pt was seen today for the first time in 23 days. When patient is see pt is passively ranged at right ring finger and right wrist. Pt is engaging in right hand and wrist strengthening exercises. Pt does receive modalities in order to decrease pain/ inflammation. Assessment Progress Assessment Slower Than Expected Assessment Notes Pt's AROM has improved since initial evaluation; however strength and pain continues to remain a clinical goal. Pt has had four nerve blocks to assist with pain down the arm into the hand. Pt continues to experience nerve pain and weakness. 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
== END 2019-10-15 10:05 | disposition home or self-care (01) ==
LOC: OT 10:00
PROVIDERS: PCP Nurse Practitioner; Visit Provider Orthopaedic Surgery
DX: M65.9 Synovitis and tenosynovitis, unspecified (principal); M79.641 Pain in right hand
CPT/HCPCS: 97010; 97035; 97110; 97140; 97164; 97166

== ENCOUNTER → 2019-10-27 08:52 | Outpatient (CLI) | payer OTHER, SELFPAY ==
[2019-10-27 09:43] LABS: Basophils # 0.1 K/mm3 (0-0.2); Basophils % 0.8 % (0.1-2.0); Eosinophils # 0.2 K/mm3 (0.0-0.4); Eosinophils % 3.3 % (0.1-12.0); Hemoglobin 13.8 g/dL (12.2-16.2); Lymphocytes # 1.7 K/mm3 (0.7-4.5); Lymphocytes % 24.9 % (10-50); Mean Corpuscular Hemoglobin 31.2 pg (27.0-31.2); Mean Corpuscular Volume 97.2 fl (81-99); Mean Platelet Volume 7.5 fl (7.4-10.4); Monocytes # 0.2 K/mm3 (0.1-1.0); Monocytes % 3.2 % (1.7-9.3); Neutrophils # 4.5 K/mm3 (1.8-7.8); Neutrophils % 67.8 % (37.0-80.0); Platelet Count 269 K/mm3 (142-424); Red Blood Count 4.42 M/mm3 (4.20-5.40); White Blood Count 6.6 K/mm3 (4.8-10.8)
[2019-10-27 10:47] LABS: Blood Urea Nitrogen 14 mg/dL (7-18); Calcium 8.6 mg/dL (8.5-10.1); Carbon Dioxide 25 mmol/L (21.0-32.0); Chloride 108 mmol/L (98-107); Creatinine,Serum 1.07 mg/dL (0.55-1.02); Estimated Glomerular Filt Rate 62 ml/min (>60); Free Thyroxine Index 3.7 ug/dL (5.93-13.13); GFR (African American) 74 ML/MIN (>60); Glucose 108 mg/dL (74-106); Sodium 145 mmol/L (136-145); T4 (Thyroxine) 11.3 ug/dl (4.7-13.3); Thyroid Stimulating Hormone 1.33 uIU/ml (0.358-3.740); Triiodothryronine (T3) Uptake 33 % (31-39)
[2019-10-28 12:35] LABS: Vitamin B12 458 pg/mL (232-1245); Vitamin D 25 Hydroxy 34.5 ng/mL (30.0-100.0)
== END ==
PROVIDERS: Visit Provider Nurse Practitioner Obstetrics & Gynecology
DX: N92.6 Irregular menstruation, unspecified (principal); R53.83 Other fatigue; N93.9 Abnormal uterine and vaginal bleeding, unspecified; R53.82 Chronic fatigue, unspecified
CPT/HCPCS: 36415; 80048; 82607; 82652; 84436; 84443; 84479; 85025

== ENCOUNTER → 2019-12-14 16:34 | Outpatient (CLI) | payer OTHER, SELFPAY ==
[2019-12-14 17:44] LABS: Basophils % 0.3 % (0.1-2.0); Eosinophils # 0.3 K/mm3 (0.0-0.4); Eosinophils % 3.2 % (0.1-12.0); Hematocrit 41.8 % (37.0-47.0); Hemoglobin 13.4 g/dL (12.2-16.2); Lymphocytes % 29.1 % (10-50); Mean Corpuscular Hemoglobin 31.1 pg (27.0-31.2); Mean Corpuscular Volume 97.1 fl (81-99); Mean Platelet Volume 7.9 fl (7.4-10.4); Monocytes # 0.4 K/mm3 (0.1-1.0); Monocytes % 4.3 % (1.7-9.3); Neutrophils # 6.5 K/mm3 (1.8-7.8); Platelet Count 300 K/mm3 (142-424); Red Blood Count 4.31 M/mm3 (4.20-5.40); Red Cell Distribution Width 12.5 % (11.5-17.5); White Blood Count 10.2 K/mm3 (4.8-10.8)
== END ==
PROVIDERS: Visit Provider Family Medicine
DX: R68.89 Other general symptoms and signs (principal); R05 Cough
CPT/HCPCS: 36415; 85025

== ENCOUNTER 2020-01-28 09:27 | Day surgery (SDC) | payer OTHER, SELFPAY ==
[2020-01-28 09:36] VITALS: BP 131/73; PULSE 86; RESP 18; TEMP 36.9; O2SAT 99; BMI 29.9
[2020-01-28 09:59] VITALS: BP 120/85; BP 122/78; PULSE 82; PULSE 85; RESP 18; TEMP 36.6; TEMP 36.8; O2SAT 99
--- NOTE | 2020-01-28 10:17 | HMH.PMPROC ---
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 Her right hand is doing much better. Autonomic symptoms have decreased significantly. Today she presents with bilateral hip pain. She is tender over both SI joints. She has a positive SI joint compression test bilaterally. She has a positive Kera's test bilaterally. She is positive Gunnar test bilaterally. We will do bilateral SI joint injections under fluoroscopy today to help her with her pain symptoms. This pain is starting to affect her activities of daily living and functionality. We will do these injections today to help her off oral narcotics and out of the emergency room. Procedure Details:: B/L SI joint injection under fluoroscopy Informed consent was obtained and the risks and benefits of the procedure was explained to the patient. The patient was taken to the procedure room and placed prone on the procedure table. The patient was prepped using ChloraPrep. The skin and subcutaneous tissues overlying the SI joints were anesthetized using lidocaine. I placed a 22-gauge needle first in the left SI joint and second in the right SI joint. Needle placement was confirmed with dye. After this we injected 5 mL bupivacaine 0.25% and Depo-Medrol 40 mg into each SI joint. Patient tolerated the procedure well with no complication. Plan and Disposition:: We will follow-up with her in 2 weeks. Will reevaluate symptoms at that time. She did get significant relief from these injections in the past. However this was only short-lived. I believe that she would benefit from SI joint stabilization in the future especially to her right side.
[2020-01-28 10:20] VITALS: BP 140/75; PULSE 86; RESP 20; O2SAT 99
== END 2020-01-28 10:20 | disposition home or self-care (01) ==
LOC: SC.PAINP 09:28
PROVIDERS: PCP Nurse Practitioner; Visit Provider Anesthesiology
DX: M46.1 Sacroiliitis, not elsewhere classified (principal)
CPT/HCPCS: 27096; G0260; J1030; Q9966

== ENCOUNTER → 2020-02-09 08:34 | Outpatient (CLI) | payer OTHER, SELFPAY ==
[2020-02-09 08:40] LABS: Microscopic, Urine URINE MICROSCOPIC (MICROSCOPIC)
[2020-02-09 09:10] LABS: Appearance,Urine CLEAR (Clear); Bilirubin,Urine Negative (Negative); Blood, Urine 2+ (Negative); Color,Urine YELLOW (Yellow); Glucose,Urine (UA) Negative (Negative); Ketones,Urine Negative (Negative); Leukocyte Esterase,Urine Negative (Negative); Nitrate,Urine Negative (Negative); Protein,Urine Negative (Negative); Specific Gravity, Urine >= 1.030 (1.005-1.030); Urobilinogen,Urine 0.2 EU/dl (0.2)
[2020-02-09 09:19] LABS: Basophils # 0.1 K/mm3 (0-0.2); Basophils % 0.7 % (0.1-2.0); Eosinophils # 0.3 K/mm3 (0.0-0.4); Eosinophils % 4.6 % (0.1-12.0); Hematocrit 43.4 % (37.0-47.0); Hemoglobin 13.6 g/dL (12.2-16.2); Lymphocytes % 26.7 % (10-50); Mean Corpuscular HGB Conc 31.4 g/dL (31.8-35.4); Mean Corpuscular Hemoglobin 30.5 pg (27.0-31.2); Mean Corpuscular Volume 96.9 fl (81-99); Mean Platelet Volume 7.3 fl (7.4-10.4); Monocytes # 0.4 K/mm3 (0.1-1.0); Monocytes % 4.6 % (1.7-9.3); Neutrophils # 4.8 K/mm3 (1.8-7.8); Neutrophils % 63.5 % (37.0-80.0); Platelet Count 316 K/mm3 (142-424); Red Blood Count 4.48 M/mm3 (4.20-5.40); Red Cell Distribution Width 12.5 % (11.5-17.5); White Blood Count 7.5 K/mm3 (4.8-10.8)
[2020-02-09 09:49] LABS: Bacteria,Urine Trace /lpf
[2020-02-09 10:43] LABS: Alanine Aminotransferase 20 U/L (12-78); Albumin Level 4.4 g/dl (3.5-5.0); Albumin/Globulin Ratio 1.3 (1.1-1.8); Alkaline Phosphatase 59 U/L (38-126); Aspartate Amino Transferase 26 U/L (14-36); Bilirubin,Total 0.4 mg/dl (0.2-1.3); Blood Urea Nitrogen 12 mg/dl (7-17); Calcium 9.4 mg/dl (8.4-10.2); Carbon Dioxide 27 mmol/L (22.0-30.0); Chloride 105 mmol/L (98-107); Estimated Glomerular Filt Rate 86 ml/min (>60); GFR (African American) 104 ML/MIN (>60); Globulin 3.3 g/dL (1.3-3.2); Glucose 80 mg/dl (74-100); Sodium 137 mmol/L (136-145); Total Protein,Serum 7.7 g/dl (6.3-8.2)
[2020-02-09 11:02] LABS: HCG Qualitative, Serum Negative (Negative)
[2020-02-10 15:08] LABS: Covid-19 Nasal PCR Sendout Lex NOT DETECTED
== END ==
PROVIDERS: Visit Provider Obstetrics & Gynecology
DX: Z01.818 Encounter for other preprocedural examination (principal)
CPT/HCPCS: 36415; 80053; 81001; 84703; 85025; U0003

== ENCOUNTER 2020-02-11 07:36 | Day surgery (SDC) | payer OTHER, SELFPAY ==
--- NOTE | 2020-02-08 13:27 | SUR.PREOP ---
02/08/20 @ 1000--PHONE CALL MADE TO PATIENT. PATIENT UNDERSTANDS THAT LAB WORK AND COVID TESTING NEEDS TO BE COMPLETED @ BEFORE 12PM ON 02/09/20. PATIENT UNDERSTANDS IF LAB WORK AND COVID-19 TESTS ARE NOT COMPLETED BY 12PM ON THAT DATE, THE SURGERY SCHEDULED WILL BE CANCELLED AND RESCHEDULED FOR ANOTHER TIME.
[2020-02-09 08:03] VITALS: BMI 33.1
[2020-02-11] VITALS (19 sets, daily range): BP systolic 100–131; BP diastolic 55–81; PULSE 64–96; RESP 16–18; TEMP 36.4–43; O2SAT 95–99
--- NOTE | 2020-02-11 10:21 | HMH.ANESCL ---
[facility] Anesthesia Checklist - Patient Identification Patient Identification: Arm Band - Structural Data Admitted From: Home Planned Operative Procedure/s: hysteroscopy, d&c novasure/myosure ablation, laparoscopic btl Consent for Planned Operative Procedure(s) Verified: Yes Verified Documents: Surgical Consent, History and Physical - NPO Status Verified Time NPO: 00:00 - Additional verifications Anesthesia Reactions: No Hx Blood Transfusions: No Blood Transfusion Reaction: No - Airway Assessment C-Spine Mobility Assessed: Yes (mp2) TMJ Mobility Assessed: Yes Dentition: Good Dentition - Neurological Assessment Level of Consciousness: Awake, Alert - Anesthesia Plan Anesthesia Risk discussed: Yes Anesthesia Plan: Verified ASA Class: II Anesthesia Type: General [facility] History I have reviewed the patient's past medical history: Yes Medical History: Reports:: Anxiety, Depression, Gall Bladder Disease, Migraine Denies:: Cancer, Diabetes Mellitus Type 1, Diabetes Mellitus Type 2, Internal Pacemaker, Lung Disease, MRSA, Seizures *Have you ever received a pneumonia vaccine?: No *Have you received a flu vaccine this season?: Yes Other Medical History: Denies: Blood Transfusion Reaction Anesthesia experience/problems:: nac Laterality Cases: Right: Other Other Surgeries: Yes: Cholecystectomy, Other (I&D right finger). No: Pacemaker Amputation: No Fractures: No - *Social History Educational Level: Attended College Smoking Status: Never smoker Alcohol Intake: current Alcohol Intake Frequency:: holidays/special occasions only Substance Use Type: denies use *Occupational Status:: employed Housing: house Household Members: children *Travel in the last 8 weeks: None - Psychiatric History Pschychiatric History:: Reports:: Anxiety, Depression Family Hx:: Anemia, Asthma, Hypertension, Alcoholism, Mental illness
--- NOTE | 2020-02-11 11:30 | HMH.OPNOTE ---
Date of procedure: 02/11/20 Pre-op Diagnosis:: 1. Heavy menstrual bleeding 2. Dysfunctional uterine bleeding 3. Severe dysmenorrhea 4. Failed medical managment with Levonorgestrel IUD 5. Undesired fertility Post-op Diagnosis:: 1. Heavy menstrual bleeding 2. Dysfunctional uterine bleeding 3. Severe dysmenorrhea 4. Failed medical managment with Levonorgestrel IUD 5. Undesired fertility Procedure performed:: 1. IUD removal 2. Laparoscopic tubal ligation 3. D&C Hysteroscopy with Myosure 4. Novasure endometrial ablation Surgeon:: Marry Camacho MD CONSULTING TECHNICAL MANAGER:: Chavo Hendricks Anesthesia: GETA Estimated blood loss (mL): 30 Operative findings:: anterior cavity mass consistent with submucosal fibroid Operative note:: LAPAROSCOPY: The patient was taken to the operating room and general anesthesia was administered. She was prepped/draped in lithotomy position. Holley retractors were placed in the vagina and the IUD was removed with a ring forcep. A Humi uterine manipulator was placed without difficulty. Gloves were changed and attention was turned to the abdomen. A 5 mm skin incision was made above the umbilical fold and the verees needle was inserted through the peritoneum and into the abdominal cavity in standard fashion. The abdomen was insufflated with CO2 gas. A 5 mm non-bladed trocar was inserted directly into the abdominal cavity and appropriate placement was confirmed with the laparoscope. No intra-abdominal injuries occurred during entry into the abdominal cavity, as confirmed visually with the laparoscope. The patient was placed in trendelenburg and a 8 mm skin incision was made 2cm above the pubic symphysis. A 8 mm non-bladed trocar was inserted under direct visualization, without complication. The uterus was elevated out of the pelvis in order to better visualize the anatomy. A survey of the pelvis and abdomen revealed a grossly normal uterus, bilateral fallopian tubes and ovaries. The left fallopian tube was double clamped with 2 separate filshie clips, and then the right fallopian tube was double clamped with 2 separate filshie clips. The abdomen was then evacuated of gas and all trocars removed. The skin incisions were closed with 4-0 monocryl. HYSTEROSCOPY: Attention was then turned to the vagina, and the uterine manipulator was removed. The anterior lip of the cervix was grasped with a single tooth tenaculum and the cervix was dilated with Pitts dilators of serially increasing size until the external os was able to accomodate the Myosure hysteroscope. The hysteroscope was advanced through the cervix and into the uterine cavity, which was distended with LR. Once the uterus was sufficiently distended, the cavity was evaluated and revealed an anterior cavity lesion c/w a submucosal fibroid. The Myosure was inserted into the hysteroscope and this lesion was excised successfully and without complication or significant fluid deficit. After the conclusion of this procedure, the Myosure and hysteroscope were removed from the uterus. The uterine cavity sounded to a length of 5.5 cm. The Novasure was inserted through the cervix and expanded to fit the width of the uterus, with a width of 4.5 cm. After a successful cavity assessment, the device was deployed and the endometrial ablation was completed in 73 seconds. Once the device had turned off, the Novasure was removed from the uterus and the hysteroscope was reinserted into the uterine cavity. The cavity appeared diffusely cauterized. The hysteroscope was removed from the uterus and all instruments removed from the vagina. The tenaculum site was hemostatic. All sponge/lap/needle/instrument counts correct for both abdominal and vaginal procedures. Total EBL: 30 cc. The patient was taken out of lithotomy position, extubated and taken to the PACU in stable condition. Condition: stable Disposition: PACU Specimens:: Endometrial curettings Complications:: Non
--- NOTE | 2020-02-11 11:38 | P.PN_ITS ---
[facility] Anesthesia Record Part I Intake, IV Amount: 1,500 Estimated blood loss (mL): 30 Urine output (mL): 50 Blood Pressure: 114/70 SaO2: 98 Pulse Rate: 79 Respiratory Rate: 16 Temperature: 97.7 F Patient is:: Drowsy, Stable Stable to PACU at:: 11:30
--- NOTE | 2020-02-11 14:29 | PC.NURSE ---
1146-pt eating ice chips w/out difficulty 1150-Dr. Camacho at pt's bedside, continuing to medicate for pain as needed per MAR
--- NOTE | 2020-02-11 14:46 | PC.NURSE ---
1225-detailed bedside report given to MARU Hernandez, Dr Camacho remains at pt's bedside, pt rating pain at 6/10 and reports beginning to minimally ease a little, denies any further nausea, Dr. Camacho okayed for pt to be discharge from pacu and to phase 2 at this time and to receive oral pain medication as ordered prior to discharging home, pt agreed with MD. LARA. 1228-pt transported to phase 2 at this time per MARU Hernandez with mahi rails up, diamond, pt stable.
--- NOTE | 2020-02-11 16:49 | P.PN_ITS ---
[facility] Anesthesia Record Part II Discharge Time: 12:28 Destination: Surgical Day Care (OP Surgery) PACU nurse assessment reviewed?: Yes Patient Condition:: Good Anesthesia Complications:: None Swallowing reflex intact?: Yes Cyanosis?: No Blood Pressure: 105/64 Pulse Rate: 73 Temperature: 97.6 F Mental Status: Alert & Oriented Pain level:: 6 Nausea and/or vomitting:: None Intake, IV Amount: 0
== END 2020-02-11 13:48 | disposition home or self-care (01) ==
LOC: OR 07:36
PROVIDERS: PCP Nurse Practitioner; Visit Provider Obstetrics & Gynecology
PROC: (CPT 58671; principal; 2020-02-11 09:00)
DX: N93.8 Other specified abnormal uterine and vaginal bleeding (principal); Z30.2 Encounter for sterilization; D25.0 Submucous leiomyoma of uterus; N94.6 Dysmenorrhea, unspecified
CPT/HCPCS: 58671; 58563; 96374; J2405; J2710; U0003

== ENCOUNTER → 2020-05-03 12:42 | Outpatient (CLI) | payer OTHER, SELFPAY ==
--- NOTE | 2020-05-03 12:46 | XR_ITS ---
PROCEDURE: XR ANKLE RT MIN 3V CLINICAL INDICATION: rt ankle pain Twisted her right ankle during exercise 1 month ago. COMPARISON: No exams were available for comparison FINDINGS: There is a subtle linear intramedullary/cortical fracture lucency seen medially in the distal fibula. The distal tibia and talar dome is intact. The ankle mortise is anatomic. Unremarkable calcaneus. Normal talonavicular and calcaneocuboid articulations. There is mild soft tissue swelling is seen over the lateral malleolus. IMPRESSION: 1. A subtle linear fracture lucencies seen medially in the distal fibula. 2. Minor soft tissue swelling of the right ankle. Dictated by: Florian Puente 05/03/2020 17:26 Electronically signed by Florian Puente in [place] 05/03/2020 17:26
== END ==
PROVIDERS: PCP Nurse Practitioner; Visit Provider Orthopaedic Surgery
DX: M25.571 Pain in right ankle and joints of right foot (principal)
CPT/HCPCS: 73610

== ENCOUNTER 2020-05-04 11:22 | Outpatient (RCR) | payer OTHER, SELFPAY | END 2020-05-04 12:00 | disposition home or self-care (01) | LOC: PT 11:22 | PROVIDERS: Visit Provider Orthopaedic Surgery | DX: M25.571 Pain in right ankle and joints of right foot (principal) ==

== ENCOUNTER 2020-05-24 12:58 | Outpatient (RCR) | payer OTHER, SELFPAY | END 2020-05-24 13:18 | disposition home or self-care (01) | LOC: PT 12:58 | PROVIDERS: Visit Provider Orthopaedic Surgery | DX: S93.401A Sprain of unspecified ligament of right ankle, initial encounter (principal) | CPT/HCPCS: 97760 ==

== ENCOUNTER 2020-07-14 11:38 | Day surgery (SDC) | payer OTHER, SELFPAY ==
[2020-07-14 11:55] VITALS: BP 145/85; PULSE 80; RESP 20; TEMP 36.6; O2SAT 98; BMI 33.3
--- NOTE | 2020-07-14 12:01 | HMH.PMPROC ---
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 Her right upper extremity is doing well. She is tender over her both SI joints. She is done well with SI joint injections in the past. She has positive Kera's test on right side. She has a positive Gunnar test on both side. She has a positive SI joint compression test. We will do bilateral SI joint injection under fluoroscopy to help with her pain symptoms. Procedure Details:: B/L SI joint injection under fluoroscopy Informed consent was obtained and the risks and benefits of the procedure was explained to the patient. The patient was taken to the procedure room and placed prone on the procedure table. The patient was prepped using ChloraPrep. The skin and subcutaneous tissues overlying the SI joints were anesthetized using lidocaine. I placed a 22-gauge needle first in the left SI joint and second in the right SI joint. Needle placement was confirmed with dye. After this we injected 5 mL bupivacaine 0.25% and Depo-Medrol 40 mg into each SI joint. Patient tolerated the procedure well with no complication. Plan and Disposition:: We will follow-up with her in 2 weeks. Will reevaluate symptoms at that time.
[2020-07-14 12:05] VITALS: BP 142/78; PULSE 85; RESP 18
[2020-07-14 12:06] VITALS: BP 122/78; PULSE 85; RESP 18; O2SAT 98
[2020-07-14 12:10] VITALS: BP 143/79; PULSE 50; RESP 20; O2SAT 98
== END 2020-07-14 12:11 | disposition home or self-care (01) ==
LOC: SC.PAINP 11:39
PROVIDERS: PCP Nurse Practitioner; Visit Provider Anesthesiology
DX: M46.1 Sacroiliitis, not elsewhere classified (principal); F41.9 Anxiety disorder, unspecified; F32.9 Major depressive disorder, single episode, unspecified; Z88.2 Allergy status to sulfonamides
CPT/HCPCS: 27096; G0260; J1040; Q9966

== ENCOUNTER → 2020-07-17 15:34 | Outpatient (POV) | payer OTHER, SELFPAY | PROVIDERS: Visit Provider Nurse Practitioner Family | DX: Z00.00 Encounter for general adult medical examination without abnormal findings (principal) ==

== ENCOUNTER 2020-10-13 08:28 | Day surgery (SDC) | payer OTHER, SELFPAY ==
[2020-10-13 08:49] VITALS: BP 112/78; PULSE 87; RESP 18; TEMP 36.6; O2SAT 99; BMI 34.9
[2020-10-13 12:54] VITALS: BP 132/85; PULSE 85; RESP 18; O2SAT 98
[2020-10-13 12:58] VITALS: BP 138/85; PULSE 85; RESP 18; O2SAT 98
--- NOTE | 2020-10-13 13:02 | HMH.PMPROC ---
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 Her right upper extremity is doing very well. She did very well after her last bilateral SI joint injections. Her left side is completely better. She still has some residual pain on the right side. She does have a positive Kera's test on the right side. She is positive Gunnar test on the right side. She has positive SI joint compression test on the right side. She has a positive distraction test on the right side. We will do a right SI joint injection under fluoroscopy today to help her with her residual pain symptoms. Procedure Details:: Right SI joint injection under fluoroscopy Informed consent was obtained and the risks and benefits of the procedure was going to the patient. Patient was taken to the procedure room. Patient was placed prone on the procedure table. The right hip was prepped using ChloraPrep. The skin and subcutaneous tissues were anesthetized using lidocaine. I placed a 22-gauge spinal needle into the inferior aspect of the right SI joint. Needle placement was confirmed with dye. After this we injected 5 mL bupivacaine 0.25% and Depo-Medrol 40 mg into the right SI joint. The patient tolerated the procedure well with no complication. Plan and Disposition:: We will follow-up with her in 2 weeks. Will reevaluate symptoms at that time.
[2020-10-13 13:15] VITALS: BP 112/80; PULSE 87; RESP 18; O2SAT 98
== END 2020-10-13 13:15 | disposition home or self-care (01) ==
LOC: SC.PAINP 08:29
PROVIDERS: PCP Nurse Practitioner; Visit Provider Anesthesiology
DX: M46.1 Sacroiliitis, not elsewhere classified (principal); F41.9 Anxiety disorder, unspecified; F32.9 Major depressive disorder, single episode, unspecified; Z88.2 Allergy status to sulfonamides; Z79.899 Other long term (current) drug therapy
CPT/HCPCS: 27096; G0260; J1040; Q9966

== ENCOUNTER → 2020-11-07 14:24 | Outpatient (CLI) | payer OTHER, SELFPAY ==
--- NOTE | 2020-11-07 14:24 | US_ITS ---
PROCEDURE: US TRANSVAGINAL CLINICAL INDICATION: US TV- pelvic pain Right-sided pelvic pain COMPARISON: US PTV US PELVIS-TRANSVAGINAL ONLY from 12/28/[id number] abdomen pelvis wo con from 04/22/2018 FINDINGS: The uterus measures 8 x4 x 5 cm with a combined endometrial thickness 3 mm. No uterine mass is evident. The left ovary is 2.7 x 1.6 by 2.9 cm with small follicles. Blood flow is present. The right ovary is 2.8 x 2.4 x 3.1 cm containing small follicles and a 2 cm simple appearing cyst. Blood flow is present. There are tubal ligation clips present. Ultrasound cannot confirm tubal location of the clips. IMPRESSION: Unremarkable pelvic ultrasound Dictated by: Alvaro Santizo MD 11/08/2020 06:17 Alvaro Santizo MD in [facility] 11/08/2020 10:14
== END ==
PROVIDERS: PCP Nurse Practitioner; Visit Provider Obstetrics & Gynecology
DX: R10.2 Pelvic and perineal pain (principal)
CPT/HCPCS: 76830

== ENCOUNTER → 2020-11-30 12:30 | Outpatient (CLI) | payer OTHER, SELFPAY ==
--- NOTE | 2020-11-30 12:32 | US_ITS ---
PROCEDURE: US TRANSVAGINAL CLINICAL INDICATION: CRPS Right lower quadrant pain, previous ablation COMPARISON: US US TRANSVAGINAL from 11/07/2020 FINDINGS: UTERUS: 8cm x 4cmx 4cm with a combined endometrial thickness of 1.8mm LEFT OVARY: [id number] with a volume of 6ml. RIGHT OVARY: [id number] with a volume of 4.3ml. There are small bilateral ovarian follicles. No dominant cyst. No cul-de-sac fluid. IMPRESSION: Negative pelvic ultrasound Dictated by: Alvaro Santizo MD 11/30/2020 15:12 Alvaro Santizo MD in [facility] 11/30/2020 15:12
== END ==
PROVIDERS: PCP Nurse Practitioner; Visit Provider Obstetrics & Gynecology
DX: G90.50 Complex regional pain syndrome I, unspecified (principal)
CPT/HCPCS: 76830

== ENCOUNTER → 2020-12-22 10:09 | Outpatient (CLI) | payer OTHER, SELFPAY ==
--- NOTE | 2020-12-22 10:12 | XR_ITS ---
PROCEDURE: XR SHOULDER LT MIN 2V CLINICAL INDICATION: LT SHOULDER PAIN COMPARISON: No exams were available for comparison FINDINGS: No fracture or dislocation. No lytic or blastic change. There is normal mineralization. The joint spaces are well-preserved. No significant degenerative/arthritic changes. No erosive changes evident. Other findings:None. IMPRESSION: No acute findings. Dictated by: Alvaro Santizo MD 12/22/2020 15:06 Alvaro Santizo MD in [facility] 12/22/2020 15:06
== END ==
PROVIDERS: PCP Nurse Practitioner; Visit Provider Anesthesiology
DX: M25.512 Pain in left shoulder (principal)
CPT/HCPCS: 73030

== ENCOUNTER 2021-01-17 16:32 | Emergency (ER) | payer OTHER, SELFPAY ==
[2021-01-17 16:33] VITALS: BP 140/95; PULSE 106; RESP 18; TEMP 37; O2SAT 98; BMI 34.7
--- NOTE | 2021-01-17 16:46 | HMH.EDALLER ---
ED Disposition Clinical Impression: Allergic reaction Qualifiers: Encounter type: initial encounter Qualified Code(s): T78.40XA - Allergy, unspecified, initial encounter Disposition: Home, Self-Care Condition on Discharge: Good Referrals: Carmelo Hahn MD [Primary Care Provider] - 01/18/21 (Call for an appointment in the morning) Time of Disposition: 19:46 - Critical Care Critical Care Time: Yes Attestation: On 01/17/21, the high probability of a clinically significant, sudden or life threatening deterioration of the following system(s) required my full and direct attention, intervention and personal management. The time I documented below is in addition to time spent performing reported procedures but includes the following listed in this critical care notation. Total Critical Care Time: 65 Vital system(s) involved:: Circulatory Failure My critical care processes included: Assessment & monitoring of V/S, Initial and Re-exams, Data Review/Interpretation, Coordinating Care, Medication Orders and management, Documentation Comment: significant allergic reaction Medical Decision Making - Medical Records Medical records reviewed: Yes: I reviewed the patient's medical records. - Ken Inquiry Pt receiving controlled substance: No Vital Signs: 01/17/21 16:33 01/17/21 16:58 01/17/21 17:00 Temperature 98.6 F Temperature Source Oral Pulse Rate 89 100 H Pulse Rate [Left Radial] 106 H Respiratory Rate 18 16 17 Blood Pressure 107/82 L 114/80 Blood Pressure [Right Arm] 140/95 H Blood Pressure Mean [Right Arm] 110 Blood Pressure Source [Right Arm] Automatic Cuff Blood Pressure Position [Right Arm] Sitting 02 Sat by Pulse Oximetry 98 96 96 Oxygen Delivery Method Room Air - Lab Data Lab results reviewed: Yes: I reviewed the patient's lab results. Lab Results 01/17/21 16:40: WBC 11.1 H, RBC 4.74, Hgb 14.4, Hct 43.5, MCV 91.7, MCH 30.5, MCHC 33.2, RDW 12.9, Plt Count 350, MPV 8.0, Neut % (Auto) 56.4, Lymph % (Auto) 34.0, [place] % (Auto) 5.6, Eos % (Auto) 3.4, Baso % (Auto) 0.6, Neut # (Auto) 6.3, Lymph # (Auto) 3.8, [place] # (Auto) 0.6, Eos # (Auto) 0.4, Baso # (Auto) 0.1 01/17/21 16:40: Sodium 139, Potassium 3.4 L, Chloride 106, Carbon Dioxide 20 L, Anion Gap 16.4 H, BUN 14, Creatinine 0.80, Estimated Creat Clear 157, Estimated GFR 85, Est GFR ( Amer) 103, Glucose 135 H, Calcium 9.3 Result diagrams: 01/17/21 16:40 01/17/21 16:40 Orders (Tests/Meds): ED MEDICATIONS Generic Name Dose Route Start Last Admin Trade Name Freq PRN Reason Stop Dose Admin Sodium Chloride 8 ml 01/17/21 16:50 Sodium Chloride 0.9% 10ml Vial IV 02/16/21 16:49 NEEDED PRN dilute pepcid Discontinued Medications Generic Name Dose Route Start Last Admin Trade Name Freq PRN Reason Stop Dose Admin Diphenhydramine HCl 25 mg 01/17/21 16:50 01/17/21 16:51 Diphenhydramine 50mg/Ml Vial IV 01/17/21 16:51 25 mg ONCE ONE Administration Famotidine 20 mg 01/17/21 16:50 01/17/21 16:51 Famotidine 20mg/2ml Vial IV 01/17/21 16:51 20 mg ONCE ONE Administration Methylprednisolone Sodium Succinate 125 mg 01/17/21 16:50 01/17/21 16:51 Methylprednisolone Sod Succ 125mg Vial IV 01/17/21 16:51 125 mg ONCE ONE Administration Medical Decision Narrative: 30yo F evaluated for allergic reaction. Patient is in moderate distress on initial evaluation. She is treated with more IV Benadryl, Solu-Medrol. Patient symptoms begin to improve within a matter of minutes. Patient never required epinephrine. Patient has been reevaluated approximately every 30 minutes during her over 3-hour observation. Her condition is continued to improve. She has now been asymptomatic for over an hour. Patient is appropriate stable for discharge home. We will discharge the patient home with a prescription for steroids as well as an EpiPen. Strongly counseled the patient she needs to find a pharmacy open tonkim
[2021-01-17 16:49] VITALS: BMI 34.7
[2021-01-17 16:54] LABS: Basophils # 0.1 K/mm3 (0-0.2); Basophils % 0.6 % (0.1-2.0); Eosinophils # 0.4 K/mm3 (0.0-0.4); Eosinophils % 3.4 % (0.1-12.0); Hematocrit 43.5 % (37.0-47.0); Hemoglobin 14.4 g/dL (12.2-16.2); Lymphocytes # 3.8 K/mm3 (0.7-4.5); Mean Corpuscular HGB Conc 33.2 g/dL (31.8-35.4); Mean Corpuscular Hemoglobin 30.5 pg (27.0-31.2); Mean Corpuscular Volume 91.7 fl (81-99); Monocytes # 0.6 K/mm3 (0.1-1.0); Monocytes % 5.6 % (1.7-9.3); Neutrophils # 6.3 K/mm3 (1.8-7.8); Neutrophils % 56.4 % (37.0-80.0); Platelet Count 350 K/mm3 (142-424); Red Blood Count 4.74 M/mm3 (4.20-5.40); Red Cell Distribution Width 12.9 % (11.5-17.5); White Blood Count 11.1 K/mm3 (4.8-10.8)
[2021-01-17 16:58] VITALS: BP 107/82; PULSE 89; RESP 16; O2SAT 96
[2021-01-17 17:00] VITALS: BP 114/80; PULSE 100; RESP 17; O2SAT 96
--- NOTE | 2021-01-17 17:05 | PC.NURSE ---
PT WAS SEEN AT [facility] AND RECEIVED BENADRYL 25MG IM ,DEPO MEDROL 80 MG IM , AND BENADRY 25MG PO PRIOR TO COMING TO ER
--- NOTE | 2021-01-17 17:36 | PC.NURSE ---
PT FEELING MUCH BETTER , REDNESS GONE , NO ITCHING , HIVES GONE
[2021-01-17 18:29] LABS: Chloride 106 mmol/L (98-107); Sodium 139 mmol/L (136-145)
[2021-01-17 18:30] LABS: Potassium 3.4 mmoL/L (3.5-5.1)
[2021-01-17 18:32] LABS: Blood Urea Nitrogen 14 mg/dl (7-17); Creatinine Clearance Estimated 157 mL/min (50-200); Estimated Glomerular Filt Rate 85 ml/min (>60); GFR (African American) 103 ML/MIN (>60)
[2021-01-17 18:33] LABS: Anion Gap 16.4 mEq/L (5-15); Calcium 9.3 mg/dl (8.4-10.2); Carbon Dioxide 20 mmol/L (22.0-30.0); Glucose 135 mg/dl (74-100)
[2021-01-17 19:55] VITALS: BP 112/78; PULSE 89; RESP 16; TEMP 36.7; O2SAT 97
== END 2021-01-17 19:56 | disposition home or self-care (01) ==
PROVIDERS: Emergency Provider Family Medicine; PCP Family Medicine
DX: T78.40XA Allergy, unspecified, initial encounter (principal); R06.02 Shortness of breath; F41.8 Other specified anxiety disorders; G43.709 Chronic migraine without aura, not intractable, without status migrainosus; Z88.0 Allergy status to penicillin
CPT/HCPCS: 80048; 85025; 96375; 99281

== ENCOUNTER 2021-03-09 12:23 | Day surgery (SDC) | payer OTHER, SELFPAY ==
[2021-03-09 12:25] VITALS: BP 140/93; PULSE 87; RESP 18; O2SAT 100; BMI 35.1
[2021-03-09 12:42] VITALS: BP 142/51; PULSE 83; RESP 16; O2SAT 99
[2021-03-09 12:43] VITALS: BP 142/51; PULSE 87; RESP 18; O2SAT 99
--- NOTE | 2021-03-09 12:49 | HMH.PMPROC ---
- Procedure Date: 03/09/21 Time: 12:49 Anesthesiologist:: Seth Johnston MD Complications:: None Pre-procedure Diagnosis:: Sacroiliitis Post-procedure Diagnosis:: Same Indications for Procedure:: This patient is a pleasant 30-year-old white female who treated in the hospital. We have been doing injections on her SI joints. She gets good relief for several weeks. Her last injection was actually back in October. She was doing well up until recently when her pain started to return. We will do a repeat right SI joint injection under fluoroscopy today. Procedure Details:: Right SI joint injection under fluoroscopy Informed consent was obtained and the risks and benefits of the procedure was going to the patient. Patient was taken to the procedure room. Patient was placed prone on the procedure table. The right hip was prepped using ChloraPrep. The skin and subcutaneous tissues were anesthetized using lidocaine. I placed a 22-gauge spinal needle into the inferior aspect of the right SI joint. Needle placement was confirmed with dye. After this we injected 5 mL bupivacaine 0.25% and Depo-Medrol 40 mg into the right SI joint. The patient tolerated the procedure well with no complication. Plan and Disposition:: We will follow-up with her on a as needed basis. If her pain starts to return we we will get her back in the clinic.
[2021-03-09 12:55] VITALS: BP 139/89; PULSE 82; RESP 20; O2SAT 100
== END 2021-03-09 12:55 | disposition home or self-care (01) ==
LOC: SC.PAINP 12:23
PROVIDERS: PCP Family Medicine; Visit Provider Anesthesiology
DX: M46.1 Sacroiliitis, not elsewhere classified (principal); G43.909 Migraine, unspecified, not intractable, without status migrainosus; F41.9 Anxiety disorder, unspecified; F32.9 Major depressive disorder, single episode, unspecified; Z87.19 Personal history of other diseases of the digestive system; Z88.2 Allergy status to sulfonamides
CPT/HCPCS: 27096; G0260; J1040; Q9966

== ENCOUNTER → 2021-04-11 11:01 | Outpatient (CLI) | payer OTHER, SELFPAY ==
[2021-04-11 11:36] LABS: Basophils # 0.1 K/mm3 (0-0.2); Eosinophils # 0.3 K/mm3 (0.0-0.4); Eosinophils % 3.7 % (0.1-12.0); Hemoglobin 13.7 g/dL (12.2-16.2); Lymphocytes # 2.8 K/mm3 (0.7-4.5); Lymphocytes % 31.1 % (10-50); Mean Corpuscular HGB Conc 33.5 g/dL (31.8-35.4); Mean Corpuscular Volume 92.6 fl (81-99); Mean Platelet Volume 8.9 fl (7.4-10.4); Monocytes # 0.5 K/mm3 (0.1-1.0); Monocytes % 5.5 % (1.7-9.3); Neutrophils # 5.3 K/mm3 (1.8-7.8); Neutrophils % 58.6 % (37.0-80.0); Platelet Count 253 K/mm3 (142-424); Red Blood Count 4.43 M/mm3 (4.20-5.40); Red Cell Distribution Width 13.1 % (11.5-17.5); White Blood Count 9.1 K/mm3 (4.8-10.8)
[2021-04-11 12:27] LABS: Hemoglobin A1C 5.5 % (4.0-6.0)
[2021-04-11 12:34] LABS: Chloride 103 mmol/L (98-107); Potassium 4.4 mmoL/L (3.5-5.1); Sodium 139 mmol/L (136-145)
[2021-04-11 12:36] LABS: Blood Urea Nitrogen 17 mg/dl (7-17); Estimated Glomerular Filt Rate 99 ml/min (>60); GFR (African American) 120 ML/MIN (>60)
[2021-04-11 12:37] LABS: Alanine Aminotransferase 22 U/L (12-78); Albumin Level 4.5 g/dl (3.5-5.0); Albumin/Globulin Ratio 1.3 (1.1-1.8); Alkaline Phosphatase 71 U/L (38-126); Anion Gap 13.4 mEq/L (5-15); Aspartate Amino Transferase 28 U/L (14-36); Bilirubin,Total 0.4 mg/dl (0.2-1.3); Calcium 9.5 mg/dl (8.4-10.2); Carbon Dioxide 27 mmol/L (22.0-30.0); Globulin 3.4 g/dL (1.3-3.2); Glucose 78 mg/dl (74-100); Iron 119 ug/dL (37-170); Total Protein,Serum 7.9 g/dl (6.3-8.2)
[2021-04-11 12:47] LABS: Total Iron Binding Capacity 353 ug/dL (265-497)
[2021-04-11 13:11] LABS: Thyroid Stimulating Hormone 1.89 uIU/mL (0.465-4.68)
[2021-04-11 14:26] LABS: Vitamin B12 339 pg/mL (239-931)
[2021-04-15 21:13] LABS: 1,25 Dihydroxy Vitamin D 47 pg/mL (.); 1,25-Dihydroxy, Vitamin D-2 <10 pg/mL (.); 1,25-Dihydroxy, Vitamin D-3 43 pg/mL (.)
== END ==
PROVIDERS: Visit Provider Nurse Practitioner Psychiatric/Mental Health
DX: Z79.899 Other long term (current) drug therapy (principal); Z00.00 Encounter for general adult medical examination without abnormal findings
CPT/HCPCS: 36415; 80053; 82607; 82652; 83036; 83540; 83550; 84443; 85025

== ENCOUNTER → 2021-06-04 11:35 | Outpatient (CLI) | payer OTHER, SELFPAY ==
--- NOTE | 2021-06-04 11:39 | XR_ITS ---
PROCEDURE: XR ANKLE WT BEARING RT MIN 3V CLINICAL INDICATION: pain COMPARISON: CR XR ANKLE RT MIN 3V from 05/03/2020 FINDINGS: Bones: No fracture or dislocation. No lytic or blastic change. There is normal mineralization. Joints: The joint spaces are well-preserved. No significant degenerative/arthritic changes. No erosive changes evident. Other findings:None. IMPRESSION: No acute findings. Dictated by: Alvaro Santizo MD 06/04/2021 12:54 Alvaro Santizo MD in [facility] 06/04/2021 12:54
--- NOTE | 2021-06-04 11:39 | XR_ITS ---
PROCEDURE: XR FOOT WT BEARING RT 3V CLINICAL INDICATION: pain COMPARISON: No exams were available for comparison FINDINGS: No fracture or dislocation. No lytic or blastic change. There is normal mineralization. The joint spaces are well-preserved. No significant degenerative/arthritic changes. No erosive changes evident. Other findings:None. IMPRESSION: No acute findings. Dictated by: Alvaro Santizo MD 06/04/2021 12:55 Alvaro Santizo MD in [facility] 06/04/2021 12:55
== END ==
PROVIDERS: PCP Family Medicine; Visit Provider Podiatrist
DX: M25.571 Pain in right ankle and joints of right foot (principal); M79.671 Pain in right foot
CPT/HCPCS: 73610; 73630

== ENCOUNTER → 2021-06-08 15:59 | Outpatient (CLI) | payer OTHER, SELFPAY | PROVIDERS: PCP Physician Assistant; Visit Provider Physician Assistant | DX: R06.83 Snoring (principal) | CPT/HCPCS: 95806 ==

== ENCOUNTER → 2021-06-11 17:13 | Outpatient (CLI) | payer OTHER, SELFPAY | PROVIDERS: Visit Provider Nurse Practitioner Family | DX: Z20.822 Contact with and (suspected) exposure to COVID-19 (principal); J02.9 Acute pharyngitis, unspecified | CPT/HCPCS: U0003 ==

== ENCOUNTER → 2021-07-26 16:04 | Outpatient (CLI) | payer OTHER, SELFPAY | PROVIDERS: PCP Physician Assistant; Visit Provider Nurse Practitioner Family | DX: R06.00 Dyspnea, unspecified (principal); R00.2 Palpitations; I20.8 Other forms of angina pectoris | CPT/HCPCS: 93270 ==

== ENCOUNTER → 2021-08-07 08:19 | Outpatient (CLI) | payer OTHER, SELFPAY ==
--- NOTE | 2021-08-07 08:20 | CA_ITS ---
APPROVED REPORT Exam: Exercise Treadmill Technologist: Thi Bell Ht: 5 ft 5 in Wt: 211 lbs BSA: 2.02 m2 HR: 85 bpm BP: 136/85 mmHg Indications: Shortness of Air Medical History Medications: Alprazolam,,,,, PaROXETINE,,,,, Vilazodone,,,,, Stress Test Details Test: Stephan HR Resting HR: 90 bpm Max Heart Rate (APMHR): 191.175898 bpm Max HR Achieved: 178 bpm Target HR (85% APMHR): 162.857726 bpm % of APMHR: 93.19 Recovery HR: 111 bpm BP Resting BP: 136.0/85.0 mmHg Max BP: 158.0/75.0 mmHg Recovery BP: 125.0/78.0 mmHg ECG Resting ECG: Sinus arrhythmia, rightward axis Clinical Exercise duration: 07:58 min Highest Stage Achieved: Exercise capacity: 10.1 METs Stress ECG Conclusion Patient exercised 7:58 on Stephan Protocol. Test stopped due to shortness of air, chest pain. Symptoms: Chest tightness and shortness of air. Arrhythmias/Ectopy: None ST-T Changes: Normal ST response to exercise. Conclusion: Normal stress EKGs. Chest tightness with exercise. GXT only (no imaging). Test Summary REST . . . . . . . Standing REST 04:25 0.0 0.0 90 . 136/ 85 . . Stage 1 01:00 10.0 1.7 120 . . . . Stage 1 02:00 10.0 1.7 126 . . . . Stage 1 03:00 10.0 1.7 136 . 150/ 72 . . Stage 2 01:00 12.0 2.5 145 . . . . Stage 2 . . . . . . . Shortness of Breath Stage 2 02:00 12.0 2.5 156 . . . . Stage 2 . . . . . . . chest tightness Stage 2 03:00 12.0 2.5 158 . 158/ 75 . . Stage 3 01:00 14.0 3.4 172 . . . . Stage 3 01:58 14.0 3.4 176 . . . Stop exercise at 07:58 RECOVERY . . . . . . . chest tightness RECOVERY 01:00 0.0 0.0 158 . 144/ 74 . . RECOVERY 02:00 0.0 0.0 142 . 144/ 74 . . RECOVERY 03:00 0.0 0.0 128 . 138/ 81 . . RECOVERY 04:00 0.0 0.0 117 . 138/ 81 . . RECOVERY 05:00 0.0 0.0 93 . 125/ 78 . . RECOVERY 05:16 0.0 0.0 109 . 125/ 78 . . Electronically signed by : Chava Redding MD 08/07/2021 21:58:07
== END ==
PROVIDERS: PCP Physician Assistant; Visit Provider Nurse Practitioner Family
DX: R06.00 Dyspnea, unspecified (principal); I20.8 Other forms of angina pectoris; R00.2 Palpitations; I49.9 Cardiac arrhythmia, unspecified
CPT/HCPCS: 93017

== ENCOUNTER → 2021-08-13 13:39 | Outpatient (CLI) | payer OTHER, SELFPAY ==
--- NOTE | 2021-08-13 13:43 | CA_ITS ---
APPROVED REPORT EXAM: Comprehensive 2D, Doppler, and color-flow Echocardiogram Event Set Up Specialist: Vee Martinez CRT Ht: 5 ft 5 in Wt: 211lbs BSA: 2.02 BP: 123/78 mmHg Indications: Chest Pain, Shortness of Breath, Palpitations 2D Dimensions LVOT 1.83 cm (M/F) 1.5-2.5 LA Volume 35.20 mL LA Volume Index 17.40 mL/m2 (M/F) 16-34 M-Mode Dimensions RVDd 2.50 cm (0.9-2.6) LA Diam 3.51 cm (1.9-4.0) LVDd 4.28 cm (3.5-5.7) Ao Diam 3.06 cm (2.0-3.7) LVDs 2.55 cm (3.5-5.7) IVSd 1.56 cm (0.6-1.1) PWd 0.74 cm (0.6-1.1) EF (Teich) 71.50% FS 40.40% EDV (Teich) 82.20 mL TAPSE 2.10 (<1.7) ESV (Teich) 23.40 mL LV Diastology E Decel Time 207.00 (160-240 msec) E/A Ratio 1.43 MED E' 13.20 (< 7 cm/sec) MED A' 11.60 cm/s E'/MED E' Ratio 7.80 (>14) LAT E' 12.60 (<10 cm/sec) LAT A' 10.20 cm/s E/LAT E' Ratio 8.17 (>14) Aortic Valve AO Peak GR. 6.40 mmHg Mitral Valve MV A Velocity 72.00 (40-130 cm/s) E/A Ratio 1.43 MV Decel. Time 207.00 (160-240 ms) Pulmonary Valve PV Peak Velocity 112.00 (50-150 cm/s) Tricuspid Valve TR P. Velocity 233.00 cm/s RAP Estimate 10.00 mmHg RVSP 31.80 mmHg Left Ventricle Left atrium is normal size, left ventricle is normal size, there is no concentric left ventricular hypertrophy, visually estimated ejection fraction 55% with no regional wall motion abnormality, diastolic parameters are within normal range. Right Ventricle Right atrium and right ventricle are normal size and contractility. Aortic Valve Aortic valve is grossly normal, there is no aortic stenosis or aortic insufficiency. Mitral Valve Mitral valve grossly normal, there is trace mitral regurgitation. Tricuspid Valve Tricuspid grossly normal, there is trace tricuspid regurgitation, tricuspid regurgitation jet velocity is inadequate for calculation of the right ventricular systolic pressure. Pulmonic Valve Pulmonic valve is poorly visualized. Great Vessels Aortic root is normal size. Inferior vena cava normal size with normal inspiratory collapse. Pericardium No significant pericardial effusion noted. Conclusion 1. Normal left ventricular size, preserved left ventricular systolic function, visually estimated ejection fraction 55% with no regional wall motion abnormality, diastolic parameters are within normal range. 2. Trace mitral and tricuspid regurgitation. 3. No significant pericardial effusion noted. 4. Inferior vena cava is normal size with normal inspiratory collapse. Electronically signed by : Chava Redding MD 08/14/2021 06:39:24
== END ==
PROVIDERS: PCP Physician Assistant; Visit Provider Nurse Practitioner Family
DX: R06.00 Dyspnea, unspecified (principal); I20.8 Other forms of angina pectoris; I49.9 Cardiac arrhythmia, unspecified
CPT/HCPCS: 93306

== ENCOUNTER → 2021-08-28 16:42 | Outpatient (CLI) | payer OTHER, SELFPAY ==
--- NOTE | 2021-08-28 16:57 | XR_ITS ---
PROCEDURE INFORMATION: Exam: XR Chest Exam date and time: 08/28/2021 4:57 PM Age: 31 years old Clinical indication: Chest pressure and sternal or substernal pain; Patient HX: Chest tightness, mid chest TECHNIQUE: Imaging protocol: XR of the chest. Views: 2 views. COMPARISON: CR CXREM XR chest employee 08/07/2018 12:37 PM FINDINGS: Lungs: Unremarkable. No consolidation. Pleural spaces: Unremarkable. No pleural effusion. No pneumothorax. Heart/Mediastinum: Unremarkable. No cardiomegaly. Bones/joints: Unremarkable. IMPRESSION: No acute findings.
[2021-08-31 16:01] LABS: Complement, Total (CH50) 44 U/mL (>41)
[2021-09-03 14:58] LABS: C1 Esterase Inhibitor 29 mg/dL (21-39)
[2021-09-03 17:12] LABS: C1 Est.Inhib.Funct. 88 (.)
[2021-09-07 18:14] LABS: Complement C1q, Quantitative 11.3 mg/dL (10.3-20.5)
== END ==
PROVIDERS: PCP Physician Assistant; Visit Provider Allergy & Immunology
DX: R09.89 Other specified symptoms and signs involving the circulatory and respiratory systems (principal); T78.3XXA Angioneurotic edema, initial encounter
CPT/HCPCS: 36415; 71046; 86160; 86161; 86162

== ENCOUNTER 2021-10-06 14:49 | Emergency (ER) | payer OTHER, SELFPAY ==
[2021-10-06 14:50] VITALS: BP 131/85; PULSE 77; RESP 16; TEMP 36.7; O2SAT 99; BMI 28.3
--- NOTE | 2021-10-06 15:00 | HMH.EDGENADL ---
ED Disposition Clinical Impression: Right flank pain Disposition: Home, Self-Care Condition on Discharge: Good Instructions: DI for Flank Pain Additional Instructions: You have been evaluated for flank, abdominal pain. No evidence of acute appendicitis or other surgical abnormality on your CT scan. No kidney stones. Please follow-up with your primary care doctor in 1 to 2 days. Take Tylenol, Motrin, Bentyl. To the emergency department for any new or worsening symptoms, worsening pain, vomiting, other concerns Prescriptions: Dicyclomine HCl 20 mg PO TID #12 tab Transmission Status: Sent to [facility] ondansetron HCL [Ondansetron 4mg tab*] 4 mg PO TIDP PRN #12 tab PRN Reason: Nausea Transmission Status: Pending to [facility] Referrals: Niurka Russell PA [Primary Care Provider] - Time of Disposition: 17:10 - Critical Care Critical Care Time: No Attestation: On , the high probability of a clinically significant, sudden or life threatening deterioration of the following system(s) required my full and direct attention, intervention and personal management. The time I documented below is in addition to time spent performing reported procedures but includes the following listed in this critical care notation. Medical Decision Making - Medical Records Medical records reviewed: Yes: I reviewed the patient's medical records. - Ken Inquiry Pt receiving controlled substance: No - Lab Data Lab Results 10/06/21 15:10: WBC 8.3, RBC 4.53, Hgb 13.9, Hct 44.3, MCV 97.7, MCH 30.7, MCHC 31.4 L, RDW 12.9, Plt Count 336, MPV 8.1, Neut % (Auto) 58.5, Lymph % (Auto) 30.2, [place] % (Auto) 4.5, Eos % (Auto) 4.0, Baso % (Auto) 2.8 H, Neut # (Auto) 4.9, Lymph # (Auto) 2.5, [place] # (Auto) 0.4, Eos # (Auto) 0.3, Baso # (Auto) 0.2 10/06/21 15:10: Sodium 140, Potassium 4.1, Chloride 107, Carbon Dioxide 25, Anion Gap 12.1, BUN 12, Creatinine 0.70, Estimated Creat Clear 144, Estimated GFR 99, Est GFR ( Amer) 120, Glucose 85, Calcium 9.0, Total Bilirubin 0.3, AST 30, ALT 31, Alkaline Phosphatase 59, Total Protein 7.6, Albumin 4.2, Globulin 3.4 H, Albumin/Globulin Ratio 1.2 10/06/21 15:10: Lipase 67 10/06/21 15:46: Urine Color Yellow, Urine Appearance Clear, Urine pH 7.5, Ur Specific [place] 1.015, Urine Protein Negative, Urine Glucose (UA) Negative, Urine Ketones Negative, Urine Blood Negative, Urine Nitrate Negative, Urine Bilirubin Negative, Urine Urobilinogen 0.2, Ur Leukocyte Esterase Negative, Urine RBC Occasional, Urine WBC 3-5, Ur Squamous Epith Cells 3-5, Urine Bacteria Trace 10/06/21 15:46: Urine HCG, Qual Negative Result diagrams: 10/06/21 15:10 10/06/21 15:10 Orders (Tests/Meds): ED MEDICATIONS Generic Name Dose Route Start Last Admin Trade Name Freq PRN Reason Stop Dose Admin Sodium Chloride 1,000 mls @ 250 mls/hr 10/06/21 15:00 10/06/21 15:23 Sod Chlor 0.9% 1000ml Bag IV 11/05/21 14:59 250 mls/hr .Q4H ADEN Administration Discontinued Medications Generic Name Dose Route Start Last Admin Trade Name Freq PRN Reason Stop Dose Admin Ketorolac Tromethamine 15 mg 10/06/21 14:59 10/06/21 15:21 Ketorolac 30mg/Ml Vial IV 10/06/21 15:00 15 mg ONCE ONE Administration Ketorolac Tromethamine 15 mg 10/06/21 15:52 10/06/21 15:54 Ketorolac 30mg/Ml Vial IM 10/06/21 15:53 Not Given ONCE ONE Ketorolac Tromethamine 15 mg 10/06/21 15:54 10/06/21 15:55 Ketorolac 30mg/Ml Vial IV 10/06/21 15:55 15 mg ONCE ONE Administration Ondansetron HCl 4 mg 10/06/21 15:20 10/06/21 15:22 Ondansetron 4mg/2ml Vial IV 10/06/21 15:21 4 mg ONCE ONE Administration Medical Decision Narrative: In summary this is a 31-year-old female with history of tubal ligation and cholecystectomy presenting to the emergency department with right lower quadrant abdominal pain. Patient clinically stable on arrival. Vital signs within normal limits. Concern for ovarian cyst, divert
[2021-10-06 15:11] VITALS: BMI 29.2
[2021-10-06 15:23] LABS: Basophils # 0.2 K/mm3 (0-0.2); Basophils % 2.8 % (0.1-2.0); Eosinophils # 0.3 K/mm3 (0.0-0.4); Hematocrit 44.3 % (37.0-47.0); Hemoglobin 13.9 g/dL (12.2-16.2); Lymphocytes # 2.5 K/mm3 (0.7-4.5); Lymphocytes % 30.2 % (10-50); Mean Corpuscular HGB Conc 31.4 g/dL (31.8-35.4); Mean Corpuscular Hemoglobin 30.7 pg (27.0-31.2); Mean Corpuscular Volume 97.7 fl (81-99); Mean Platelet Volume 8.1 fl (7.4-10.4); Monocytes # 0.4 K/mm3 (0.1-1.0); Monocytes % 4.5 % (1.7-9.3); Neutrophils # 4.9 K/mm3 (1.8-7.8); Neutrophils % 58.5 % (37.0-80.0); Platelet Count 336 K/mm3 (142-424); Red Blood Count 4.53 M/mm3 (4.20-5.40); Red Cell Distribution Width 12.9 % (11.5-17.5); White Blood Count 8.3 K/mm3 (4.8-10.8)
[2021-10-06 15:24] LABS: Chloride 107 mmol/L (98-107)
[2021-10-06 15:25] LABS: Potassium 4.1 mmoL/L (3.5-5.1); Sodium 140 mmol/L (136-145)
[2021-10-06 15:27] LABS: Alanine Aminotransferase 31 U/L (12-78); Albumin Level 4.2 g/dl (3.5-5.0); Albumin/Globulin Ratio 1.2 (1.1-1.8); Alkaline Phosphatase 59 U/L (38-126); Anion Gap 12.1 mEq/L (5-15); Aspartate Amino Transferase 30 U/L (14-36); Bilirubin,Total 0.3 mg/dl (0.2-1.3); Blood Urea Nitrogen 12 mg/dl (7-17); Carbon Dioxide 25 mmol/L (22.0-30.0); Creatinine Clearance Estimated 144 mL/min (50-200); Estimated Glomerular Filt Rate 99 ml/min (>60); GFR (African American) 120 ML/MIN (>60); Globulin 3.4 g/dL (1.3-3.2); Lipase 67 U/L (23-300); Total Protein,Serum 7.6 g/dl (6.3-8.2)
[2021-10-06 15:28] LABS: Glucose 85 mg/dl (74-100)
--- NOTE | 2021-10-06 15:43 | CT_ITS ---
PROCEDURE INFORMATION: Exam: CT Abdomen And Pelvis With Contrast Exam date and time: 10/06/2021 3:43 PM Age: 31 years old Clinical indication: Abdominal pain; Other: Right lower quadrent pain; Prior surgery; Surgery date: 6+ months; Surgery type: Tubal; Additional info: Rlq pain TECHNIQUE: Imaging protocol: Computed tomography of the abdomen and pelvis with contrast. Radiation optimization: All CT scans at this facility use at least one of these dose optimization techniques: automated exposure control; mA and/or kV adjustment per patient size (includes targeted exams where dose is matched to clinical indication); or iterative reconstruction. Contrast material: ISOVUE; Contrast volume: 75 ml; Contrast route: IV; [facility] abdomen pelvis wo con 04/22/2018 1:42 PM FINDINGS: Liver: Normal. No mass. Gallbladder and bile ducts: Cholecystectomy. Pancreas: Normal. No ductal dilation. Spleen: Normal. No splenomegaly. Adrenal glands: Normal. No mass. Kidneys and ureters: Normal. No hydronephrosis. Stomach and bowel: Unremarkable. No obstruction. No mucosal thickening. Appendix: No evidence of appendicitis. Intraperitoneal space: Unremarkable. No free air. No significant fluid collection. Vasculature: Unremarkable. No abdominal aortic aneurysm. Lymph nodes: Unremarkable. No enlarged lymph nodes. Urinary bladder: Unremarkable as visualized. Reproductive: Bilateral tubal ligation clips. Bones/joints: Unremarkable. No acute fracture. Soft tissues: Unremarkable. IMPRESSION: No acute findings.
[2021-10-06 15:54] LABS: Microscopic, Urine URINE MICROSCOPIC (MICROSCOPIC)
[2021-10-06 16:13] LABS: Appearance,Urine CLEAR (Clear); Bilirubin,Urine Negative (Negative); Blood, Urine Negative (Negative); Color,Urine YELLOW (Yellow); Glucose,Urine (UA) Negative (Negative); Ketones,Urine Negative (Negative); Leukocyte Esterase,Urine Negative (Negative); Nitrate,Urine Negative (Negative); PH,Urine 7.5 (5.0-8.5); Protein,Urine Negative (Negative); Specific Gravity, Urine 1.015 (1.005-1.030); Urobilinogen,Urine 0.2 EU/dl (0.2)
[2021-10-06 16:16] LABS: Urine Pregnancy, HCG Qual. Negative (Negative)
--- NOTE | 2021-10-06 16:19 | PC.NURSE ---
PT to CT
[2021-10-06 16:40] LABS: Bacteria,Urine Trace /lpf; RBC,Urine Occasional #/hpf (0-3)
[2021-10-06 17:28] VITALS: BP 128/70; PULSE 70; RESP 16; TEMP 36.9; O2SAT 98
== END 2021-10-06 17:29 | disposition home or self-care (01) ==
PROVIDERS: Emergency Provider Emergency Medicine; PCP Physician Assistant
DX: R10.31 Right lower quadrant pain (principal); F41.8 Other specified anxiety disorders
CPT/HCPCS: 74177; 80053; 81001; 81025; 83690; 85025; 96365; 96375; 99283; J2405

== ENCOUNTER 2021-10-14 18:33 | Emergency (ER) | payer OTHER, SELFPAY ==
[2021-10-14 19:40] VITALS: BP 120/29; PULSE 106; RESP 22; TEMP 36.8; O2SAT 98; BMI 35.1
[2021-10-14 20:14] LABS: Influenza A, PCR Not Detected (NotDetected); Influenza B, PCR Not Detected (NotDetected)
--- NOTE | 2021-10-14 20:16 | HMH.EDUTC ---
[facility] [place] Clinical Impression: Upper respiratory infection, viral, COVID-19 virus test result unknown Disposition: Home, Self-Care Condition on Discharge: Good Instructions: DI for Viral Upper Respiratory Infection -- Adult, COVID-19: Testing and Tracing Additional Instructions: covid swab was sent to lab, self isolate until test results are known to be negative No sign of a bacterial infection. Likely viral. Viruses can take 7-14 days to run their course. Nasal saline and bulb syringe or nose Christy to remove nasal drainage to help with nasal congestion. Hard to eat, drink, sleep with nasal congestion so important to keep this cleaned out. Monitor temp. Tylenol or Motrin as needed for pain or fever Encourage fluids, water, Gatorade, Powerade, Pedialyte if infant/toddler/child Warm salt water gargles Warm fluids Sore throat lozenges Sleep elevated Humidifier/vaporizer Follow-up immediately for new or worsening symptoms or no noticeable improvement over the next 48-72 hours. Referrals: Niurka Russell PA [Primary Care Provider] - Time of Disposition: 20:21 Medical Decision Making - Ken Inquiry Pt receiving controlled substance: No Orders (Tests/Meds): ORDERS Category Date Time Status Rapid PCR Covid and Flu A/B Stat Lab 10/14/21 19:48 Received [facility] [place] HPI - General Chief complaint: [facility] Stated complaint: covid test,cough,SOA, JIMENEZ, lubna Time Seen by Provider: 10/14/21 20:16 Mode of Arrival: Ambulatory Source of Information: Patient Limitations: No Limitations - History of Present Illness Provider Complaint: 31 yr old female presnets for cough,soa,body aches,fever and chills that started yesterday. has been exposed to covid - Related Data Home Medications Medication Instructions Recorded Confirmed cetirizine 10 mg tablet 10 mg PO DAILY PRN 06/05/21 09/20/21 fluticasone propionate 232 1 inh INHALATION BID 06/05/21 09/20/21 mcg/actuation breath activated pwdr inhal,sensor ubrogepant 50 mg tablet mg PO ONCE tab 06/05/21 09/20/21 Previous Rx's Medication Instructions Recorded EPINEPHrine [Epipen 2-Casey] 0.3 mg IM ONCE PRN #1 auto.injct 01/17/21 butalbital 50 mg-acetaminophen 300 1 cap PO Q4H PRN #30 cap 06/05/21 mg-caffeine 40 mg-codeine 30 mg cap omeprazole 40 mg capsule,delayed 40 mg PO DAILY #90 cap 08/20/21 release propranolol 80 mg capsule,24 80 mg PO DAILY #30 cap 08/20/21 hr,extended release alprazolam 0.5 mg tablet See Rx Instructions PO TID PRN #90 09/07/21 tab aripiprazole 5 mg tablet 5 mg PO QHS #30 tab 09/07/21 ondansetron 4 mg disintegrating 4 mg PO Q8H #30 tab 09/25/21 tablet Dicyclomine HCl 20 mg PO TID #12 tab 10/06/21 ondansetron HCL [Ondansetron 4mg 4 mg PO TIDP PRN #12 tab 10/06/21 tab*] Allergies Allergy/AdvReac Type Severity Reaction Status Date / Time Sulfa (Sulfonamide Allergy Mild Rash Verified 09/20/21 14:05 Antibiotics) [facility] History - Hepatitis A Screen Attestation statement:: This patient has been screened for Hepatitis A risk factors. I have reviewed the patient's past medical history: Yes Medical History: Reports:: Anxiety, Depression, Gall Bladder Disease, Migraine Denies:: Cancer, Diabetes Mellitus Type 1, Diabetes Mellitus Type 2, Internal Pacemaker, Lung Disease, MRSA, Seizures Other Medical History: Denies: Blood Transfusion Reaction Laterality Cases: Right: Other Other Surgeries: Yes: No Previous Surgery, Cholecystectomy, Tubal Ligation, Other. No: Pacemaker Amputation: No Fractures: No Comment: Right hand, uterine ablation. wisdom teeth removed - Social History Smoking Status: Never smoker Alcohol Intake: current Alcohol Intake Frequency:: holidays/special occasions only Substance Use Type: denies use Occupational Status: employed Housing: house Household Members: spouse - Psychiatric History Pschychiatric History:: Reports:: Anxiety, Depression Family Hx:: Anemia, Asthma,
[2021-10-14 20:20] VITALS: BP 120/29; PULSE 106; RESP 22; TEMP 36.8; O2SAT 98
[2021-10-14 20:52] LABS: Coronavirus 19, PCR Detected (NotDetected)
== END 2021-10-14 20:24 | disposition home or self-care (01) ==
PROVIDERS: Emergency Provider Nurse Practitioner Family; PCP Physician Assistant
DX: U07.1 COVID-19 (principal); J06.9 Acute upper respiratory infection, unspecified; F41.8 Other specified anxiety disorders; Z88.2 Allergy status to sulfonamides
CPT/HCPCS: 99202; C9803; G0463; U0003; U0005

== ENCOUNTER 2021-10-26 08:55 | Day surgery (SDC) | payer OTHER, SELFPAY ==
[2021-10-26 09:01] VITALS: BP 146/86; PULSE 85; RESP 20; O2SAT 96; BMI 34.3
[2021-10-26 09:12] VITALS: BP 142/80; PULSE 87; RESP 18; O2SAT 98
[2021-10-26 09:14] VITALS: PULSE 86; RESP 18; O2SAT 98
--- NOTE | 2021-10-26 09:17 | HMH.PMPROC ---
- Procedure Date: 10/26/21 Time: 09:17 Anesthesiologist:: Seth Johnston MD Complications:: None Pre-procedure Diagnosis:: Sacroiliitis Post-procedure Diagnosis:: Same Indications for Procedure:: This patient is a pleasant 31-year-old white female who we have been treating for bilateral chronic sacroiliitis. She has done well with bilateral SI joint injections. They give her several months pain relief. Her pain is now starting to back over both SI joints. She is tender over both SI joints. She has a positive Kera's test bilaterally. She has a positive Gunnar test bilaterally. She has positive SI joint compression test bilaterally. She has a positive distraction test bilaterally. We will plan on repeat bilateral SI joint injections under fluoroscopy today to help with pain symptoms. Procedure Details:: B/L SI joint injection under fluoroscopy Informed consent was obtained and the risks and benefits of the procedure was explained to the patient. The patient was taken to the procedure room and placed prone on the procedure table. The patient was prepped using ChloraPrep. The skin and subcutaneous tissues overlying the SI joints were anesthetized using lidocaine. I placed a 22-gauge needle first in the left SI joint and second in the right SI joint. Needle placement was confirmed with dye. After this we injected 5 mL bupivacaine 0.25% and Depo-Medrol 40 mg into each SI joint. Patient tolerated the procedure well with no complication. Plan and Disposition:: We will follow-up with her in 2 weeks. Will reevaluate her symptoms at that time.
[2021-10-26 09:25] VITALS: BP 148/85; PULSE 86; RESP 20; O2SAT 96
== END 2021-10-26 09:25 | disposition home or self-care (01) ==
LOC: SC.PAINP 08:56
PROVIDERS: PCP Physician Assistant; Visit Provider Anesthesiology
DX: M46.1 Sacroiliitis, not elsewhere classified (principal); R00.0 Tachycardia, unspecified; K21.9 Gastro-esophageal reflux disease without esophagitis; F32.A Depression, unspecified; F41.9 Anxiety disorder, unspecified; Z88.2 Allergy status to sulfonamides
CPT/HCPCS: 27096; G0260; J1040; Q9966

== ENCOUNTER → 2022-02-19 07:51 | Outpatient (CLI) | payer OTHER, SELFPAY ==
[2022-02-19 08:52] LABS: Amphetamine/Metha Screen,Urine Negative ng/ml (<1000); Barbiturates Screen,Urine Negative ng/ml (<200)
[2022-02-19 08:53] LABS: Benzodiazepines Screen,Urine Positive ng/ml (<200)
[2022-02-19 08:54] LABS: Cannabinoid Screen,Urine Negative ng/ml (<50); Methadone Screen,Urine Negative ng/ml (<300)
[2022-02-19 08:55] LABS: Cocaine Screen,Urine Negative ng/ml (<300); Opiate Screen,Urine Negative ng/ml (<300)
[2022-02-19 08:56] LABS: Phencyclidine Screen,Urine Negative ng/ml (<25)
== END ==
PROVIDERS: Visit Provider Nurse Practitioner Psychiatric/Mental Health
DX: Z02.83 Encounter for blood-alcohol and blood-drug test (principal)
CPT/HCPCS: 80305

== ENCOUNTER → 2022-02-27 12:49 | Outpatient (CLI) | payer OTHER, SELFPAY ==
--- NOTE | 2022-02-27 12:50 | CA_ITS ---
FINAL REPORT CLINICAL HISTORY: .Bilat pedal edema with steroid use FINDINGS: DUPLEX VENOUS SONOGRAPHY OF THE BILATERAL LOWER EXTREMITIES Multiple transverse and longitudinal scans were performed of the femoropopliteal deep venous systems, with augmentation and compression maneuvers. Normal phasic flow was noted in the visualized deep venous systems. No intraluminal increased echogenicity is noted to suggest thrombus. There is normal compression and augmentation of the venous structures. No abnormal venous collaterals are seen. IMPRESSION: No evidence of deep venous thrombosis of the bilateral lower extremities. Reviewed, Interpreted and Dictated by Estelita Caruso MD Transcribed by Mariely Armenta Authenticated by Estelita Caruso MD on 02/27/2022 04:08:39 PM [facility]
== END ==
PROVIDERS: PCP Physician Assistant; Visit Provider Nurse Practitioner Family
DX: R06.00 Dyspnea, unspecified (principal); R60.0 Localized edema; R00.2 Palpitations; I49.1 Atrial premature depolarization; I49.9 Cardiac arrhythmia, unspecified; G47.33 Obstructive sleep apnea (adult) (pediatric)
CPT/HCPCS: 93970

== ENCOUNTER → 2023-06-19 11:33 | Outpatient (CLI) | payer OTHER, BC, SELFPAY ==
[2023-06-19 12:07] LABS: Basophils # 0.1 K/mm3 (0-0.2); Basophils % 1.2 % (0.1-2.0); Eosinophils # 0.5 K/mm3 (0.0-0.4); Eosinophils % 7.6 % (0.1-12.0); Hematocrit 43.7 % (37.0-47.0); Lymphocytes # 2.5 K/mm3 (0.7-4.5); Lymphocytes % 36.7 % (10-50); Mean Corpuscular HGB Conc 32.2 g/dL (31.8-35.4); Mean Corpuscular Hemoglobin 30.7 pg (27.0-31.2); Mean Corpuscular Volume 95.5 fl (81-99); Mean Platelet Volume 8.9 fl (7.4-10.4); Monocytes # 0.3 K/mm3 (0.1-1.0); Monocytes % 4.7 % (1.7-9.3); Neutrophils # 3.4 K/mm3 (1.8-7.8); Neutrophils % 49.7 % (37.0-80.0); Platelet Count 233 K/mm3 (142-424); Red Blood Count 4.57 M/mm3 (4.20-5.40); Red Cell Distribution Width 12.3 % (11.5-17.5); White Blood Count 6.9 K/mm3 (4.8-10.8)
[2023-06-19 13:40] LABS: Alanine Aminotransferase 22 U/L (12-78); Albumin Level 4.4 g/dl (3.5-5.0); Alkaline Phosphatase 65 U/L (38-126); Anion Gap 14.2 mEq/L (5-15); Aspartate Amino Transferase 24 U/L (14-36); Bilirubin,Indirect 0.4 mg/dL (0.0-0.9); Bilirubin,Total 0.4 mg/dl (0.2-1.3); Bilirubin,Unconjugated 0.4 mg/dL (0.0-1.1); Blood Urea Nitrogen 14 mg/dl (7-17); Calcium 9.2 mg/dl (8.4-10.2); Carbon Dioxide 28 mmol/L (22.0-30.0); Chloride 104 mmol/L (98-107); Chol/HDL Ratio 3.9 (1-3.5); Cholesterol 152 mg/dl (140-200); Estimated Glomerular Filt Rate 84 ml/min (>60); GFR (African American) 101 ML/MIN (>60); Glucose 79 mg/dl (74-100); HDL Cholesterol 39 mg/dl (40-60); Magnesium 1.6 mg/dl (1.6-2.3); Potassium 4.2 mmoL/L (3.5-5.1); Sodium 142 mmol/L (136-145); Total Protein,Serum 7.7 g/dl (6.3-8.2); Triglycerides 90 mg/dl (30-150); VLDL Cholesterol 18 mg/dL (0-40)
[2023-06-19 13:51] LABS: Troponin I < 0.01 ng/ml (0.00-0.034)
[2023-06-19 13:52] LABS: Direct LDL Cholesterol 86.92 mg/dL (100-129)
[2023-06-19 13:56] LABS: Free T4 (Free Thyroxine) 1.14 ng/dl (0.78-2.19)
[2023-06-19 14:10] LABS: Thyroid Stimulating Hormone 1.88 uIU/mL (0.465-4.68)
== END ==
PROVIDERS: PCP Physician Assistant; Visit Provider Nurse Practitioner Family
DX: I20.9 Angina pectoris, unspecified (principal); R06.00 Dyspnea, unspecified; F41.9 Anxiety disorder, unspecified
CPT/HCPCS: 36415; 80048; 80061; 80076; 83735; 84439; 84443; 84484; 85025

== ENCOUNTER → 2023-07-10 06:55 | Outpatient (CLI) | payer BC, OTHER, SELFPAY ==
--- NOTE | 2023-07-10 07:03 | CT_ITS ---
APPROVED REPORT Zipper Lining Folder: CLINICAL INDICATION Chest Pain TECHNIQUE Image Acquisition: A 128 slice MDCT scanner ([employer] View) was used for data acquisition. A noncontrast coronary calcium scan was performed. Bolus tracking in the ascending aorta with a threshold of 180 HU was performed. Immediately afterwards, ECG synchronized cardiac CT was then performed from the cardiac base to apex using retrospective gating with ECG tube current modulation. A total of 85 mL of Isovue 370 mg/mL contrast medium was administered at 5 mL/sec followed by a saline flush using a biphasic injection protocol. A tube voltage of 120 KVp was used. The patient received the following medications prior to the cardiac CT. 100 mg of oral metoprolol 0.8 mg of sublingual nitroglycerin. The average heart rate at the time of acquisition was 60 bpm and regular. Image Reconstruction Transaxial images were reconstructed at 0.67 mm slide thickness. Data was reviewed interactively on an advanced workstation capable of 2 and 3-dimensional displays in all conventional reconstruction formats, including multiplanar reformations, maximum intensity projections, curved multiplanar reformations, and volume rendered reconstructions. When applicable, selected routine images describing the relevant coronary anatomy and pathology were saved and sent to PACS. Complications None Technical Quality Overall image quality was good. Coronary artery opacification was adequate. Total DLP (Dose-Length Product) is 1605.9 mGy-cm. The reported value represents the total of one or more individual components during the CT acquisition of this date and at this time, and as such, the same value may appear in more than one CT report depending on the interpreting/reporting physicians. COMPARISON None FINDINGS CT Coronary Calcium Scoring LMA (Left Main Artery) = 0 LAD (Left Anterior Descending) = 0 LCX (Left Coronary Circumflex) = 0 RCA (Right Coronary Artery) = 0 Total Calcium Score = 0 using the AJ-130 method. The interpretation of the calcium heart score is based on the following continuum*: 0 = no calcified plaque detected (risk of coronary artery disease is very low ??? less than 5%) 1-10 = calcium detected in extremely minimal levels (risk of coronary diseases is still low ??? less than 10%) 11-100 = mild levels of plaque detected with certainty (mild or minimal narrowing of heart arteries is likely) 101-400 = definite,at least moderate levels of plaque detected (relatively high risk of a heart attack within 3-5 years) >401-999 = extensive levels of plaque detected (high risk of heart attack, high levels of vascular disease are present, high likelihood of at least one significant coronary narrowing) *The calcium heart score quantifies the burden of coronary calcification/plaque in the coronary arteries. The calcium heart score is not able to evaluate the presence or burden of non-calcified (i.e. soft) plaque. There is no identifiable calcification in the aortic valve, mitral annulus or mitral valve, pericardium, or myocardium. Coronary CT Angiography Coronaries have normal origin and proximal course. The coronary arterial system is right dominant. Note: Stenosis is reported as maximum percentage diameter stenosis. Stenosis grading is reported using the following scheme: Quantitative Stenosis Grading: Left Main (LM): The left main originates normally from the left sinus of Valsalva. The LM bifurcates into the left anterior descending artery and left circumflex artery. The LM is patent with no evidence of atherosclerosis. Left Anterior Descending (LAD) and Diagonal Branches: The LAD gives off 3 diagonal branch(es). The LAD and its branches are patent with no evidence
[2023-07-10 07:14] VITALS: BMI 33.6
[2023-07-10 07:23] VITALS: BP 146/93; PULSE 86; RESP 18; TEMP 36.2; O2SAT 100
[2023-07-10 07:44] LABS: Urine Pregnancy, HCG Qual. Negative (Negative)
[2023-07-10 08:15] VITALS: BP 137/85; PULSE 59; RESP 18; O2SAT 100
[2023-07-10 08:30] VITALS: BP 130/67; PULSE 63; RESP 18; O2SAT 100
--- NOTE | 2023-07-10 08:30 | PC.NURSE ---
After CTA was completed, pt was transported to echo lab for her next procedure via wheelchair.
--- NOTE | 2023-07-10 08:33 | CA_ITS ---
APPROVED REPORT EXAM: Comprehensive 2D, Doppler, and color-flow Echocardiogram Siphon Operator: Leny Atkinson RDCS Ht: 5 ft 4 in Wt: 196lbs BSA: 1.94 BP: 131/85 mmHg Indications: CO SOA 2D Dimensions LVOT 1.76 cm (M/F) 1.5-2.5 M-Mode Dimensions RVDd 1.88 cm (0.9-2.6) LA Diam 3.46 cm (1.9-4.0) LVDd 4.91 cm (3.5-5.7) Ao Diam 2.56 cm (2.0-3.7) LVDs 3.50 cm (3.5-5.7) IVSd 0.91 cm (0.6-1.1) PWd 0.87 cm (0.6-1.1) EF (Teich) 55.10% FS 28.70% EDV (Teich) 113.40 mL TAPSE 2.25 (<1.7) ESV (Teich) 50.90 mL LV Diastology E Decel Time 267.00 (160-240 msec) E/A Ratio 1.6 MED E' 13.40 (< 7 cm/sec) E'/MED E' Ratio 8.99 (>14) LAT E' 11.10 (<10 cm/sec) E/LAT E' Ratio 10.85 (>14) Mitral Valve MV E Max Brody. 120.00 (40-130 cm/s) MV A Velocity 74.00 (40-130 cm/s) E/A Ratio 1.63 MV Decel. Time 267.00 (160-240 ms) MV PHT 78.00 ms Left Ventricle The left ventricle is normal size. The left ventricular systolic function is normal. The left ventricular ejection fraction is within the normal range. There is normal left ventricular wall thickness. There is normal LV segmental wall motion. The left ventricular diastolic function is normal. LVEF is 60%. Right Ventricle The right ventricle is normal size. The right ventricular systolic function is normal. Atria The left atrium size is normal. The right atrium size is normal. There is no Doppler evidence of interatrial shunt. Aortic Valve The aortic valve is trileaflet. The aortic valve opens well. There is no aortic valvular stenosis. Trace aortic regurgitation. Mitral Valve The mitral valve is normal in structure. No evidence of mitral valve stenosis. There is no mitral valve regurgitation noted. Tricuspid Valve The tricuspid valve leaflets are thin and pliable. Trace tricuspid regurgitation. There is insufficient TR jet to estimate RVSP. Pulmonic Valve The pulmonary valve is normal in structure. Trace pulmonic regurgitation. Great Vessels The aortic root is normal in size. The ascending aorta is normal in size. IVC is normal in size and collapses >50% with inspiration. Pericardium There is no pericardial effusion. Other Information Study Quality: Adequate Conclusion Normal biventricular systolic function. No significant valvular stenosis or regurgitation. Electronically signed by : Ericka Colunga MD 07/10/2023 21:39:11
== END ==
PROVIDERS: PCP Physician Assistant; Visit Provider Nurse Practitioner Family
DX: R06.00 Dyspnea, unspecified (principal); I20.89 Other forms of angina pectoris; F41.9 Anxiety disorder, unspecified
CPT/HCPCS: 75574; 81025; 93306; Q9967

== ENCOUNTER 2023-09-06 09:22 | Emergency (ER) | payer BC, OTHER, SELFPAY ==
[2023-09-06 10:15] VITALS: BP 114/67; PULSE 75; RESP 18; TEMP 37.4; O2SAT 100; BMI 32.6
--- NOTE | 2023-09-06 11:02 | EXP.UTC ---
Discharge Plan Disposition Patient Disposition: Home, Self-Care Condition: Good Prescriptions Prescriptions: New amoxicillin [amoxicillin] 500 mg tablet 500 mg PO BID 10 Days Qty: 20 0RF fluticasone propionate [fluticasone propionate] 50 mcg/actuation spray,suspension 1 spray intranasal DAILY Qty: 9.9 0RF No Action alprazolam [Xanax] 1 mg tablet See Rx Instructions PO .COMPLEX PRN (Reason: anxiety) Qty: 60 1RF Rx Instructions: take 1/2 tablet (0.5mg) in the am and around 2-3 pm; then 1 tablet at bedtime PO PRN; omeprazole 40 mg capsule,delayed release(DR/EC) See Rx Instructions .ROUTE .COMPLEX Qty: 90 3RF Dose Instruction: TAKE ONE CAPSULE BY MOUTH EVERY DAY Rx Instructions: TAKE ONE CAPSULE BY MOUTH EVERY DAY propranolol 80 mg capsule,extended release 24 hr See Rx Instructions .ROUTE .COMPLEX Qty: 90 3RF Dose Instruction: TAKE ONE CAPSULE BY MOUTH EVERY DAY Rx Instructions: TAKE ONE CAPSULE BY MOUTH EVERY DAY fluoxetine [Prozac] 20 mg capsule 20 mg PO DAILY Qty: 30 1RF epinephrine 0.3 MG/0.3 ML auto-injector 0.3 mg IM ONCE PRN (Reason: Allergic Reaction) Qty: 1 0RF Referrals Follow up/Referrals: Niurka Russell PA [Primary Care Provider] - See instructions Activity Restrictions/Add. Instructions Additional Instructions/Restrictions: Start antibiotic as soon as possible and be sure to take as ordered for full length of time even though he should start feeling better in 24-48 hours. Tylenol or Motrin as needed for pain or fever Encourage fluids, water, Gatorade, Powerade, Pedialyte if /toddler/child Warm compresses often helps when placed over ear Return immediately for new or worsening symptoms no noticeable improvement in 48-72 hours and in 10-14 days to ensure the ears are return to baseline. Follow-up with primary care Clinical Impressions Clinical Impression: Otitis media Qualifiers: Otitis media type: suppurative Chronicity: acute Laterality: bilateral Recurrence: non-recurrent Spontaneous tympanic membrane rupture: without spontaneous rupture Qualified Code(s): H66.003 - Acute suppurative otitis media without spontaneous rupture of ear drum, bilateral Instructions Patient Instructions: Middle Ear Infection Discharge ED [facility] [place] Stated complaint: ear pain Mode of Arrival: Ambulatory Source of Information: Patient Limitations: No Limitations Time Seen by Provider: 09/06/23 11:03 Description of Symptoms (Recalled from Triage Doc. by RN): bilateral ear pain HEENT Symptoms (Recalled from RN notes): Yes Resp Symptoms (Recalled from RN notes): No Skin Symptoms (Recalled from RN notes): No MS Symptoms (Recalled from RN notes): No Functional Status (Recalled from RN notes): n/a History of Present Illness Provider Complaint: 33 yr old female presents for mahi ear pain left worse Related Data Previous Rx's Medication Instructions Recorded epinephrine 0.3 mg/0.3 mL 0.3 mg (0.3 mL) IM ONCE PRN 01/17/21 injection, auto-injector Allergic Reaction ##1 alprazolam 1 mg tablet (Xanax) See Rx Instructions PO .COMPLEX 04/02/23 PRN anxiety #60 tabs fluoxetine 20 mg capsule (Prozac) 20 mg PO DAILY #30 caps 06/13/23 omeprazole 40 mg capsule,delayed See Rx Instructions .Route 06/19/23 release .COMPLEX #90 caps propranolol 80 mg capsule,24 See Rx Instructions .Route 06/19/23 hr,extended release .COMPLEX #90 caps amoxicillin 500 mg tablet 500 mg PO BID 10 days #20 tabs 09/06/23 fluticasone propionate 50 1 spray intranasal DAILY #9.9 mL 09/06/23 mcg/actuation nasal spray,suspension Allergies Allergy/AdvReac Type Severity Reaction Status Date / Time Sulfa (Sulfonamide Allergy Mild Rash Verified 09/06/23 10:37 Antibiotics) Worker's Comp Is this a Worker's Comp case?: No [facility] Disclaimer: The information contained in this section may have been updated after the patient wa
[2023-09-06 11:25] VITALS: BP 114/67; PULSE 75; RESP 18; TEMP 37.4; O2SAT 100
== END 2023-09-06 11:25 | disposition home or self-care (01) ==
PROVIDERS: Emergency Provider Nurse Practitioner Family; PCP Physician Assistant
DX: H66.003 Acute suppurative otitis media without spontaneous rupture of ear drum, bilateral (principal)
CPT/HCPCS: 99212; 99214; G0463

== ENCOUNTER 2024-06-26 14:00 | Emergency (ER) | payer BC, SELFPAY ==
[2024-06-26 14:01] VITALS: BP 155/99; PULSE 81; RESP 20; TEMP 36.8; O2SAT 100; BMI 31.2
--- NOTE | 2024-06-26 14:06 | HMH.EDGENADL ---
Discharge Plan Disposition Patient Disposition: Home, Self-Care Prescriptions Prescriptions: New epinephrine [EpiPen 2-Casey] 0.3 mg/0.3 mL auto-injector 0.3 mg IM Q10M PRN (Reason: anaphylaxis) Qty: 2 0RF Rx Instructions: for 2 doses No Action omeprazole 40 mg capsule,delayed release(DR/EC) See Rx Instructions .ROUTE .COMPLEX Qty: 90 3RF Dose Instruction: TAKE ONE CAPSULE BY MOUTH EVERY DAY Rx Instructions: TAKE ONE CAPSULE BY MOUTH EVERY DAY propranolol 80 mg capsule,extended release 24 hr See Rx Instructions .ROUTE .COMPLEX Qty: 90 3RF Dose Instruction: TAKE ONE CAPSULE BY MOUTH EVERY DAY Rx Instructions: TAKE ONE CAPSULE BY MOUTH EVERY DAY alprazolam [Xanax] 1 mg tablet See Rx Instructions PO .COMPLEX PRN (Reason: anxiety) Qty: 60 1RF Rx Instructions: take 1/2 tablet (0.5mg) in the am and around 2-3 pm; then 1 tablet at bedtime PO PRN; fluoxetine 20 mg capsule See Rx Instructions .ROUTE .COMPLEX Qty: 30 1RF Dose Instruction: TAKE ONE CAPSULE BY MOUTH EVERY DAY Rx Instructions: TAKE ONE CAPSULE BY MOUTH EVERY DAY amoxicillin [amoxicillin] 500 mg tablet 500 mg PO BID 10 Days Qty: 20 0RF fluticasone propionate [fluticasone propionate] 50 mcg/actuation spray,suspension 1 spray intranasal DAILY Qty: 9.9 0RF epinephrine 0.3 MG/0.3 ML auto-injector 0.3 mg IM ONCE PRN (Reason: Allergic Reaction) Qty: 1 0RF Referrals Follow up/Referrals: Provider,Referral, MD [Primary Care Provider] - See instructions Activity Restrictions/Add. Instructions Additional Instructions/Restrictions: Use EpiPen as prescribed as needed for anaphylaxis. 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 Please return the emerged part with any new, concerning, or worsening symptoms. Clinical Impressions Clinical Impression: Anaphylaxis Qualifiers: Encounter type: initial encounter Qualified Code(s): T78.2XXA - Anaphylactic shock, unspecified, initial encounter Print Language Print Language: Slovak Discharge ED Provider: Sushil Cotton General Adult HPI General Chief complaint: Allergic Reaction Stated complaint: Allergic reaction Time Seen by Provider: 06/26/24 14:00 Mode of Arrival: Ambulatory Source of Information: Patient Limitations: No Limitations History of Present Illness HPI narrative: This is a 34-year-old female with a history of idiopathic anaphylaxis who presents with concern for anaphylactic reaction. States that approximately 30 minutes prior to arrival she developed a rash to her face and the sensation of throat swelling. Denies wheezing. Also reports nausea. Denies abdominal pain. He is not aware of any particular trigger. States that she had followed up with allergy and immunology in the past. Related Data Previous Rx's ?Medication ?Instructions ?Recorded epinephrine 0.3 mg/0.3 mL 0.3 mg (0.3 mL) IM ONCE PRN 01/17/21 injection, auto-injector Allergic Reaction ##1 omeprazole 40 mg capsule,delayed See Rx Instructions .Route 06/19/23 release .COMPLEX #90 caps propranolol 80 mg capsule,24 See Rx Instructions .Route 06/19/23 hr,extended release .COMPLEX #90 caps amoxicillin 500 mg tablet 500 mg PO BID 10 days #20 tabs 09/06/23 fluticasone propionate 50 1 spray intranasal DAILY #9.9 mL 09/06/23 mcg/actuation nasal spray,suspension alprazolam 1 mg tablet (Xanax) See Rx Instructions PO .COMPLEX 05/11/24 PRN anxiety #60 tabs fluoxetine 20 mg capsule See Rx Instructions .Route 06/18/24 .COMPLEX #30 caps epinephrine 0.3 mg/0.3 mL 0.3 mg (0.3 mL) IM Q10M PRN 06/26/24 injection, auto-injector (EpiPen anaphylaxis #2 ea 2-Casey) Allergies Allergy/AdvReac Type Severity Reaction Status Date / Time Sulfa (Sulfonamide Allergy Mild Rash Verified 03/09/24 09:30 Antibiotics) [facility] Disclaimer: The information contained in this section may have been updated after the patient was seen, as this information can be updated by other users. Medical History , [employer]) Angioedema Anxiety Generalized anxiety disorder Insomnia Migraine headache Plantar fasciitis, bilateral Typical angina Surgical History , [employer]) History of cholecystectomy History of tubal ligation Family History , [employer]) No significant family history Social History , HILARIO) Smoking Status: Never smoker second hand exposure: No alcohol intake: never substance use type: denies use current occupational status: employed Travel in the last 8 weeks: None household members: spouse housing: house number of children: 3 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 current occupational exposures/hazards: No caffeine: Yes ROS Obtained: Yes All systems reviewed & no additional complaints except as documented Physical Exam General General appearance: alert and in no apparent distress Eye Eye exam: Present normal appearance, PERRL and EOMI ENT ENT exam: Present normal exam, normal oropharynx and mucous membranes moist Respiratory Respiratory exam: Present normal lung sounds bilaterally; Absent respiratory distress Cardiovascular Cardiovascular exam: Present regular rate and normal rhythm Abdominal Exam Abdominal exam: Present soft and distention; Absent tenderness, guarding or rebound Extremities Exam Extremities exam: Present normal inspection Neurological Exam Neurological exam: Present alert and oriented X3 Skin Skin exam: Present warm, dry and rash (Erythematous rash to the right side of patient's face) Medical Decision Making Medical Records Medical records reviewed: Yes I reviewed the patient's medical records. Screening: Per USPSTF and CDC recommendations, given the prevalence of disease in our region, it is our hospital?s policy to screen for HIV and viral Hepatitis for all patients aged 18 and over and those with ongoing risk factors. Ken Inquiry Pt receiving controlled substance: No Vital Signs: 06/26/24 14:01 06/26/24 14:30 06/26/24 15:01 Temperature 98.3 F Temperature Source Oral Pulse Rate 68 67 Pulse Rate [Right] 81 Respiratory Rate 20 Blood Pressure 144/95 H 155/100 H Blood Pressure [Right Arm] 155/99 H Blood Pressure Mean 103 118 Blood Pressure Mean [Right Arm] 117 02 Sat by Pulse Oximetry 100 99 100 Oxygen Delivery Method Room Air Room Air Lab Data Lab Results 06/26/24 14:05: VBG pH 7.33, VBG pCO2 47.9, VBG pO2 27.0 L, VBG HCO3 24.4, VBG Total CO2 25.9, VBG O2 Saturation 48.9 L, VBG Base Excess -1.6, VBG Lactic Acid 1.3 Orders (Tests/Meds): ED MEDICATIONS Discontinued Medications Generic Name Dose Route Start Last Admin Trade Name Freq PRN Reason Stop Dose Admin Diphenhydramine HCl 25 mg 06/26/24 14:15 06/26/24 14:16 Diphenhydramine 50mg/Ml Vial IV 06/26/24 14:16 25 mg ONCE ONE Administration Epinephrine HCl 0.3 mg 06/26/24 14:07 06/26/24 14:14 Epinephrine 1 Mg/Ml Ampul IM 06/26/24 14:08 0.3 mg ONCE ONE Administration Methylprednisolone Sodium Succinate 125 mg 06/26/24 14:07 06/26/24 14:18 Methylprednisolone Sod Succ 125mg Vial IV 06/26/24 14:08 125 mg ONCE ONE Administration ORDERS Category Date Time Status HIV (1&2) Antibody Rapid Stat Lab 06/26/24 14:05 Received Hep C Ab with Reflex to RNA Stat Lab 06/26/24 14:05 Received Venous Blood Gas Routine RT 06/26/24 14:05 Completed Medical Decision Narrative: This is a 34-year-old female with a history of idiopathic anaphylaxis who presents with concern for allergic reaction/anaphylaxis. On arrival, patient was normotensive, nontachycardic, afebrile, airway intact, no significant distress. Differential diagnosis includes but is not limited to allergic reaction, anaphylaxis, angioedema. Patient had at least 2 or consistent involvement with the complaint of rash and the sensation of throat swelling +/- nausea. Elected to treat the patient for anaphylaxis with 0.3 mg of IM epinephrine. Also administered 125 Solu-Medrol and gave an additional 25 mg of Benadryl. Patient had already taken 25 mg of Benadryl and Pepcid prior to arrival. Observed in the emergency department for approximately 2 hrs after administration of epi w/ no rebound of symptoms. States that she has 1 EpiPen at home but would need a prescription for another. Provided prescription for EpiPen. Wished to go home and rest and was going to be observed by her father. Ultimately discharged in stable condition. Critical Care Critical Care Time Critical Care Time: No
[2024-06-26] MEDS: EPINEPHrine 1 MG/ML AMPUL 0.3 MG IM (14:14)
[2024-06-26] MEDS: diphenhydrAMINE 50MG/ML VIAL 25 MG IV (14:16)
[2024-06-26 14:18] LABS: Lactate Venous 1.3 mmol/L (0.4-2.0); VBG Base Excess -1.6 mmol/L (-2.4-2.3); VBG HCO3 24.4 mmol/L (23-30); VBG Oxygen Saturation 48.9 % (50-70); VBG PCO2 47.9 mmol/L (35-51); VBG PH 7.33 mmol/L (7.31-7.41); VBG Total CO2 25.9 mmol/L (23-27)
[2024-06-26] MEDS: METHYLPREDNISOLONE SOD SUCC 125MG VIAL 125 MG IV (14:18)
[2024-06-26 14:30] VITALS: BP 144/95; PULSE 68; O2SAT 99
[2024-06-26 15:01] VITALS: BP 155/100; PULSE 67; O2SAT 100
[2024-06-26 16:00] VITALS: BP 144/95; PULSE 66; RESP 20; TEMP 36.9; O2SAT 100
[2024-06-27 09:52] LABS: HIV (1&2) Antibody Rapid NONREACTIVE (NONREACTIVE)
[2024-06-29 05:10] LABS: HCV Ab Non Reactive (Non Reactive)
== END 2024-06-26 16:03 | disposition home or self-care (01) ==
PROVIDERS: Emergency Provider Student in an Organized Health Care Education/Training Program
DX: T78.2XXA Anaphylactic shock, unspecified, initial encounter (principal); R11.0 Nausea; I20.9 Angina pectoris, unspecified
CPT/HCPCS: 82803; 86803; 87389; 96372; 96374; 96375; 99285; J1200; J2919